=== PATIENT | female | born 1930 | race Caucasian/White ===

== ENCOUNTER 2017-02-15 12:21 | Emergency (ER) | payer MEDICARE, BC ==
[2017-02-15 13:31] LABS: APPEARANCE CLEAR (CLEAR); BILIRUBIN NEGATIVE (NEGATIVE); COLOR YELLOW (YELLOW); GLUCOSE NEGATIVE (NEGATIVE); KETONE NEGATIVE (NEGATIVE); NITRITE NEGATIVE (NEGATIVE); PROTEIN NEGATIVE (NEGATIVE); SPECIFIC GRAVITY 1.005 (1.005-1.020); UROBILINOGEN NORMAL (NORMAL)
== END 2017-02-15 17:00 | disposition home or self-care (01) ==
LOC: D.ER 12:21
PROVIDERS: Family Medicine
DX: R33.9 Retention of urine, unspecified (principal); I10 Essential (primary) hypertension; E03.9 Hypothyroidism, unspecified

== ENCOUNTER 2017-04-11 00:06 | Emergency (ER) | payer MEDICARE, BC ==
[2017-04-11 00:44] LABS: APPEARANCE CLEAR (CLEAR); COLOR YELLOW (YELLOW); NITRITE NEGATIVE (NEGATIVE); PROTEIN NEGATIVE (NEGATIVE); SPECIFIC GRAVITY 1.015 (1.005-1.020)
[2017-04-11 00:45] LABS: BILIRUBIN NEGATIVE (NEGATIVE); GLUCOSE NEGATIVE (NEGATIVE); KETONE NEGATIVE (NEGATIVE); UROBILINOGEN NORMAL (NORMAL)
== END 2017-04-11 01:40 | disposition home or self-care (01) ==
LOC: D.ER 00:06
PROVIDERS: Nurse Practitioner Family
DX: K59.00 Constipation, unspecified (principal); M54.5 Low back pain; I10 Essential (primary) hypertension; E03.9 Hypothyroidism, unspecified

== ENCOUNTER → 2017-05-08 18:50 | Outpatient (CLI) | payer MEDICARE, BC ==
[~2017-05-08 18:50] MED LIST: ACCUPRIL20 MG PO; ALPHAGAN P15 ML EACH EYE; BUMETANIDE0.5 MG PO; COREG12.5 MG PO; COSOPT EYE DROPS5 ML LEFT EYE; HYDRALAZINE HCL25 MG PO; ISOSORBIDE DINI30 MG PO; JANTOVEN6 MG PO; LIMBREL 500 MG500 MG PO; NORVASC5 MG PO; NUCYNTA100 MG PO; SYNTHROID75 MCG PO; VITAMIN D3400 UNI1 PO; XALATAN 0.0052.5 ML EACH EYE
[2017-05-08 19:12] LABS: APPEARANCE CLEAR (CLEAR); BILIRUBIN NEGATIVE (NEGATIVE); COLOR GREEN (YELLOW); GLUCOSE NEGATIVE (NEGATIVE); KETONE NEGATIVE (NEGATIVE); NITRITE NEGATIVE (NEGATIVE); PROTEIN NEGATIVE (NEGATIVE); UROBILINOGEN NORMAL (NORMAL)
[2017-05-08 19:13] LABS: BACTERIA FEW /hpf (NONE SEEN)
[2017-05-08 19:14] LABS: YEAST >1+ WITH HYPHAE /hpf (NONE SEEN)
[2017-08-05 09:39] VITALS: BMI 32.5
== END | disposition home or self-care (01) ==
LOC: D.LABREF 18:50
PROVIDERS: Family Medicine
DX: R33.9 Retention of urine, unspecified (principal)

== ENCOUNTER → 2017-05-09 12:45 | Outpatient (CLI) | payer MEDICARE, BC ==
--- NOTE | ~2017-05-09 | EC ---
PATIENT:FEDE HANCOCK DATE OF SERVICE: 05/09/17 SEX: F MEDICAL RECORD: [id number] DATE OF : 34 LOCATION:D.[facility] AGE OF PATIENT: 86 ADMISSION DATE: 05/09/17 REFERRING PHYSICIAN: INTERPRETING PHYSICIAN: OMAR BECKMAN MD ECHOCARDIOGRAM REPORT ECHO CHARGES 4 ECHO COMPLETE CLINICAL DIAGNOSIS: AFIB/HTN/ANGINA/CAD ECHOCARDIOGRAPHIC MEASUREMENTS (adult normal given) AC root (d.<3.7cm) 2.7 cm LV Septum d (<1.2 cm> 1.7 cm Valve Excursion 1.7 cm LV Septum (systole) 1.8 cm Left Atria (s.<4.0cm> 3.7 cm LVPW d(<1.2cm) 1.9 cm RV (d.<2.3cm) 3.6 cm LVPW (sytole) 2.0 cm LV diastole(<5.6CM) 4.6 cm MV E-F(>70mm/sec) cm LV systole 3.6 cm LVOT Diameter 1.7 cm MV exc.(>10mm) 1.7 cm Est.ejection fraction (50-75%) % Pericardial Effusion N DOPPLER: LVIT cm/sec A 75.0 cm/sec E 88.0 cm/sec LA cm/sec RVSP 27 mmHg LVOT 122 cm/sec AOP1/2T 457 m/s Asc. Ao 173 cm/sec RVOT 96 cm/sec RA cm/sec PA 117 cm/sec AV Gradient Peak 12.01mmHg AV Mean 5.52 mmHg AV Area 1.8 cm MV Gradient Peak 4.82 mmHg MV Mean 1.81 mmHg MV Area cm COMMENTS: Professional Athletes Coach: Thien KIS[employer] Job Titles: 4 Dr. Beckman TAPE# PACS DATE OF SERVICE: 05/09/2017 PROCEDURE: Transthoracic echocardiogram. FINDINGS: 1. The patient's left ventricular function is normal. Ejection fraction 55%. The patient has mild left ventricular hypertrophy. 2. The aortic valve is normal size, normal function with mild aortic insufficiency. 3. The mitral valve has trace to mild mitral regurgitation, otherwise ECHOCARDIOGRAM REPORT [id number] FEDE HANCOCK structurally normal. 4. The tricuspid valve has mild tricuspid regurgitation and normal right ventricular systolic pressures. 5. The right ventricle and the right atrium are mildly dilated with normal function. CONCLUSIONS: The patient has evidence of mild left ventricular hypertrophy, otherwise normal echocardiogram for age. TRANSINT:[id number] Voice Confirmation ID: [id number] DOCUMENT ID: [id number] OMAR BECKMAN MD at 1214 CC: [id number] DICTATION DATE: 05/09/172111 PRENATAL GENETIC COUNSELOR: 05/10/17 0103 DEP CLI 05/09/17 [place] [place] [address]
[2017-08-05 09:39] VITALS: BMI 32.5
== END | disposition home or self-care (01) ==
LOC: D.ECHO 04-16 13:00
DX: I48.91 Unspecified atrial fibrillation (principal); I10 Essential (primary) hypertension; I25.10 Atherosclerotic heart disease of native coronary artery without angina pectoris; I20.9 Angina pectoris, unspecified

== ENCOUNTER → 2017-05-14 16:38 | Outpatient (CLI) | payer MEDICARE, BC ==
[2017-05-14 19:06] LABS: CHOL - HDL RATIO 1.7 ratio (2.3-4.1); LDL-HDL RATIO 0.6 ratio (1.5-3.5)
[2017-08-05 09:39] VITALS: BMI 32.5
== END | disposition home or self-care (01) ==
LOC: D.LABREF 16:38
PROVIDERS: Internal Medicine Cardiovascular Disease
DX: E78.5 Hyperlipidemia, unspecified (principal)

== ENCOUNTER 2017-05-17 17:24 | Emergency (ER) | payer MEDICARE, BC ==
[2017-08-05 09:39] VITALS: BMI 32.5
== END 2017-05-17 20:21 | disposition home or self-care (01) ==
LOC: D.ER 17:24
DX: Z76.0 Encounter for issue of repeat prescription (principal); G89.29 Other chronic pain; I10 Essential (primary) hypertension

== ENCOUNTER 2017-05-26 15:40 | Emergency (ER) | payer MEDICARE, BC ==
[2017-05-26 17:24] LABS: BASOPHILS 0.4 % (0-2); EOSINOPHILS 1.3 % (0-7); HEMATOCRIT 38.8 % (36.0-48.0); HEMOGLOBIN 12.7 g/dL (12-16); IMMATURE GRANULOCYTES 0.1 % (0-5); LYMPHOCYTES 47.5 % (15-50); MCH 29.7 pg (26.0-34.0); MCHC 32.7 g/dL (31.0-37.0); MCV 90.7 fL (80.0-100.0); MEAN PLATELET VOLUME 8.8 fL (7.4-10.4); MONOCYTES 10.6 % (2-11); NEUTROPHILS 40.1 % (40-80); PLATELET COUNT 188 10x3/uL (130-400); RBC 4.28 10x6/uL (4.00-5.40); RDW 14.2 % (11.5-14.5); WBC 6.9 10x3/uL (4.8-10.8)
[2017-05-26 17:45] LABS: APTT 31.6 SECONDS (22.8-39.4); INR 1.69 (0.85-1.17); PROTIME 19.3 SECONDS (11.6-15.0)
[2017-05-26 17:46] LABS: D-DIMER-QUANTITATIVE < 0.27 ug/mLFEU (0.20-0.54)
[2017-05-26 17:49] LABS: MAGNESIUM - SERUM 1.9 mg/dL (1.8-2.4)
[2017-05-26 17:52] LABS: ALBUMIN 3.5 g/dL (3.4-5.0); ALKALINE PHOSPHATASE 55 U/L (46-116); ALT (SGPT) 22 U/L (10-68); BILIRUBIN - TOTAL 0.61 mg/dL (0.2-1.3); CALC OSMOLALITY 273 mosm/kg (275-300); CARBON DIOXIDE 29.3 mmol/L (21.0-32.0); CHLORIDE - SERUM 101 mmol/L (98-107); CREATININE - SERUM 0.8 mg/dL (0.6-1.3); GLUCOSE 99 mg/dL (74-106); POTASSIUM - SERUM 3.9 mmol/L (3.5-5.1); PROTEIN - SERUM 7.2 g/dL (6.4-8.2); SODIUM 136 mmol/L (136-145); UREA NITROGEN 17 mg/dL (7-18); eGFR NON AFRICAN AMERICAN 72 mL/min (90-120)
[2017-05-26 17:58] LABS: APPEARANCE CLEAR (CLEAR); BILIRUBIN NEGATIVE (NEGATIVE); COLOR YELLOW (YELLOW); GLUCOSE NEGATIVE (NEGATIVE); KETONE NEGATIVE (NEGATIVE); NITRITE NEGATIVE (NEGATIVE); PROTEIN NEGATIVE (NEGATIVE); UROBILINOGEN NORMAL (NORMAL)
[2017-05-26 18:00] LABS: BACTERIA FEW /hpf (NONE SEEN); RED CELLS - URINE RARE /hpf (0-5); WHITE CELLS - URINE 0-5 /hpf (0-5)
[2017-05-26 18:07] LABS: CREATINE KINASE 51 UL (21-215); PRO BNP 793 pg/mL (0-450); TROPONIN-I < 0.017 ng/mL (0.000-0.060)
[2017-05-26 21:56] LABS: CREATINE KINASE 51 UL (21-215)
[2017-05-26 22:00] LABS: TROPONIN-I < 0.017 ng/mL (0.000-0.060)
[2017-08-05 09:39] VITALS: BMI 32.5
== END 2017-05-26 22:31 | disposition home or self-care (01) ==
LOC: D.ER 15:40
PROVIDERS: Family Medicine; Nurse Practitioner Family
DX: R07.9 Chest pain, unspecified (principal); M79.605 Pain in left leg; M79.604 Pain in right leg; I10 Essential (primary) hypertension; E03.9 Hypothyroidism, unspecified

== ENCOUNTER 2017-05-28 07:10 | Outpatient (CLI) | payer MEDICARE, BC ==
[~2017-05-28] VITALS: Ht 154.9 cm; Wt 76.4 kg
--- NOTE | ~2017-05-28 | HEMODYNAMI ---
PATIENT:FEDE HANCOCK MEDICAL RECORD: [id number] : 34 LOCATION:[facility] ADMISSION DATE: 05/28/17 Generatedon:05/28/20179:55 Patient name: FEDE HANCOCK Patient #: [id number] SSN: : 1930 Date of study: 05/28/2017 Page: Of Hemodynamic Procedure Report Patient Data Patient Demographics Procedure consent was obtained First Name: FEDE Gender: Female Last Name: KARISSA : 1930 Patient #: [id number] Age: 86 year(s) Race: Unknown Additional ID: [id number] Contact details Address: [address] [place] [address] State: [place] City: [place] Zip code: [address] Past Medical History Allergies Allergen Reaction Date Comments Reported Other allergy 05/28/2017 AMIODARONE, BIOLONEX, CYMBALTA, GABAPENTIN, IODINATED CONTRAST, LEVAQUIN, LEVOTHYROXINE, MIRALAX, MOVANTIK, NIFEDIPINE, PHENAZOPYRIDINE, ZOCOR, BIOFLEX FOR ARTHRITIS Admission Admission Data Admission Date: 05/28/2017 Admission Time: 7:10 Height (in.): 5.1 BSA: 0.29 (m2) Height (cm.): 12.95 BMI: 4514.13 (kg/m2) Weight (lbs.): 167 Weight (kg.): 75.75 Lab Results Lab Result Date: 05/28/2017 Lab Result Time: 1:00 Coagulation Name Units Result Min Max INR units 1.12 --(---*)-- 0.85 1.17 Procedure Procedure Types Cath Procedure Diagnostic Procedure [facility] w/Coronaries Procedure Description Procedure Date Procedure Date: 05/28/2017 Procedure Start Time: 9:41 Procedure End Time: 9:53 Procedure Staff Name Function Dustin Webster MD Performing Physician Evie Fournier RN Nurse Jessica Contreras RT Monitor Sary Hein RT Scrub Procedure Data Cath Procedure Fluoroscopy Diagnostic fluoroscopy Total fluoroscopy Time: 1.5 time: 1.5 min min Diagnostic fluoroscopy Total fluoroscopy dose: 243 dose: 243 mGy mGy Contrast Material Contrast Material Type Amount (ml) Isovue 300 40 Entry Location Entry Primary Successful Side Size Upsize Upsize Entry Closure Sherwood ccessful Closure Location (Fr) 1 (Fr) 2 (Fr) Remarks Device Remarks Radial Right 6 Fr Mechanical artery Short Compression Estimated blood loss: 5 ml Diagnostic catheters Device Type Used For End Catheter Placement DIAGNOSTIC Slim 110cm Procedure 5Fr catheter ([id number]) Procedure Complications No complications Procedure Medications Medication Administration Route Dosage Oxygen NC 2 l/min Lidocaine 2% added to field 20 Heparin Flush Bag added to field 2 bags (1000units/500ml NS) 0.9% NaCl I.V. 100 ml/hr Versed I.V. 1 mg Radial Cocktail I.A. 1 syringe (Verapomil 2mg/Nitro 400mcg/Heparin 1500units) Fentanyl I.V. 25 mcg Hemodynamics Rest BSA: 0.29 (m2) HGB: 11.7 (g/dl) O2 Consumption: Estimated: 26.07 (ml/min) O2 Con sumption indexed: Estimated:89.9 (ml/min/m) Heart Rate: 72 (bpm) Pressure Samples Time Site Value (mmHg) Purpose Heart Use Rate(bpm) 9:47 LV 141/-4,17 EDP 59 Gradients Valve Time Site Site Mean SEP/DFP Peak To Heart Use 1 2 (mmHg) (sec/min) Peak Rate (mmHg) (bpm) Aortic 9:48 LV AO 66 Snapshots Pre Cath Intra NCS Post Cath Vital Signs Time Heart Resp SPO2 etCO2 NIBP (mmHg) Rhythm Pain Sedation Rate (ipm) (%) (mmHg) Status Level (bpm) 9:24:00 67 18 96 33 188/73(129) NSR 0 (11) 10(A) , No pain 9:28:41 61 26 98 37.5 183/75(144) NSR 0 (11) 10(A) , No pain 9:33:21 64 23 98 26.2 201/83(140) NSR 0 (11) 10(A) , No pain 9:37:56 70 18 98 0 181/73(125) NSR 0 (11) 10(A) , No pain 9:42:26 66 13 97 4.5 154/75(119) NSR 0 (11) 10(A) , No pain 9:46:54 68 14 95 32.3 146/62(98) NSR 0 (11) 10(A) , No pain 9:51:21 66 18 95 35.2 136/64(115) NSR 0 (11) 10(A) , No pain Medications Time Medication Route Dose Verified Delivered Reason Notes E ffectiveness by by 9:22:08 Oxygen NC 2 l/min Dustin Buffie used for Eleanor Fournier RN procedure 9:22:15 Lidocaine 2% added 20ml Dustin Dustin for local to vial Eleanor Webster MD anesthetic field HERNANDEZ 9:22:20 Heparin Flush added 2 bags Dustin Dustin used for Bag to Eleanor Webster MD procedure (1000units/500ml field HERNANDEZ NS) 9:22:29 0.9% NaCl I.V. 100 Dustin Buffie Per ml/hr Eleanor Fournier RN physician 9:36:10 Versed I.V. 1 mg Dustin Buffie for sedation Eleanor Fournier RN, MD 9:46:33 Radial Cocktail I.A. 1 Dustin Dustin for (Verapomil syringe Eleanor Webster MD vasodilation 2mg/Nitro MD 400mcg/Heparin 1500units) 9:47:05 Fentanyl I.V. 25 mcg Dustin Buffie for back Eleanor Fournier RN pain MD Procedure Log Time Note 8:27:44 H&P Date Dictated: 05/21/2017 Within 30 days and on chart., H&P Addendum completed by physician on day of procedure. (MUST COMPLETE FOR ALL OUTPATIENTS). 8:29:41 Patient allergic to Other allergyAMIODARONE, BIOLONEX, CYMBALTA, GABAPENTIN, IODINATED CONTRAST, LEVAQUIN, LEVOTHYROXINE, MIRALAX, MOVANTIK, NIFEDIPINE, PHENAZOPYRIDINE, ZOCOR, BIOFLEX FOR ARTHRITIS 8:30:13 Lab Result : BUN 23 mg/dl 8:30:13 Lab Result : Hemoglobin 11.7 g/dl 8:30:13 Lab Result : Creatinine 1 mg/dl 8:30:58 Patient Height : 5.1 inches 8:31:11 Patient Weight : 167 lbs 8:35:03 Lab Result : INR 1.12 units 8:58:10 Evie Fournier RN sent for patient. Start room use. 8:59:51 Time tracking: Regular hours 8:59:56 Plan of Care:Hemodynamics will remain stable., Cardiac rhythm will remain stable., Comfort level will be maintained., Respiratory function will remain adequate., Patient/ family verbilizes understanding of procedure., Procedure tolerated without complication., Recovers from procedure without complications.. 8:59:57 Signed procedure consent form obtained from patient. 9:16:37 Patient received from Pre/Post Procedure Room to CCL 2 Alert and oriented. Tansferred to table in Supine position. 9:16:38 Warm blankets applied, and art hugger turned on for patient comfort. 9:16:39 Correct patient and procedure confirmed by team. 9:16:41 ECG and BP/O2 sat monitors applied to patient. 9:22:08 Oxygen 2 l/min NC was administered by Evie Fournier RN; used for procedure; 9:22:15 Lidocaine 2% 20ml vial added to field was administered by Dustin Webster MD; for local anesthetic; 9:22:20 Heparin Flush Bag (1000units/500ml NS) 2 bags added to field was administered by Dustin Webster MD; used for procedure; 9:22:29 0.9% NaCl 100 ml/hr I.V. was administered by Evie Fournier RN; Per physician; 9:22:31 Vital chart was started 9:32:41 Baseline sample Acquired. 9:32:44 Rhythm: sinus rhythm 9:32:45 Full Disclosure recording started 9:32:46 Pre-procedure instructions explained to patient. 9:32:46 Pre-op teaching completed and patient verbalized understanding. 9:32:48 Family in patients room. 9:32:49 Patient NPO since Midnight. 9:32:51 Is the patient allergic to Iodine/contrast media? Yes. 9:32:52 Was the patient premedicated? Yes 9:33:05 Is patient on blood thinner?Yes 9:33:08 ACC The patient was administered the following blood thiners within the last 24 hours: ACCPlavix 9:33:10 Patient diabetic? No. 9:33:20 Previous problem with sedation/anesthesia? Yes light sedation 9:33:21 Snore? No 9:33:23 Deviated septum? No 9:33:25 Sleep apnea? No 9:33:26 Opens mouth fully? Yes 9:33:27 Sticks out tongue? Yes 9:33:29 Airway obstruction? No ? 9:33:32 Dentures? Yes IN TIGHT 9:33:36 Modified Radames's test Ulnar < 7 seconds 9:33:38 Patient pain scale 0/10 ?. 9:33:44 IV patent on arrival in right antecubital with 0.9% NaCl at [facility]. 9:33:47 Lab results completed and on chart. 9:33:49 Right Radial & Right Groin area was prepped with chlora-prep and draped in sterile fashion 9:33:51 Alarms reviewed by R. N. 9:33:51 Sharps counted by scrub and verified by R.N. 9:33:54 Use device set Radial Dx or PCI 9:33:55 ACIST Syringe (32870) opened to sterile field. 9:33:56 Tegaderm 4 x 4 (1626W) opened to sterile field. 9:33:57 Bag Decanter (2002S) opened to sterile field. 9:33:59 ACIST Hand Control (52449) opened to sterile field. 9:34:00 ACIST Manifold (36699) opened to sterile field. 9:34:00 Medline Cath Pack ([id number]) opened to sterile field. 9:34:01 SHEATH 6FR Slender ([id number]) opened to sterile field. 9:34:02 DIAGNOSTIC WIRE .035 260cm J wire (773968) opened to sterile field. 9:34:03 MBrace Wrist Support ([id number]) opened to sterile field. 9:34:23 --------ALL STOP TIME OUT------ 9:34:24 Final Timeout: patient, procedure, and site verified with staff and physician. All members of the team are in agreement. 9:34:25 Right Radial & Right Groin site verified by team. 9:34:29 Physical assessment completed. ASA score P 2 - A patient with mild systemic disease as per Dustin Webster MD. 9:34:32 Sedation plan: IV Moderate Sedation Medication:Versed, Fentanyl 9:36:10 Versed 1 mg I.V. was administered by Evie Fournier RN; for sedation; 9:40:58 Procedure started. 9:41:17 Local anesthetic to right radial artery with Lidocaine 2% by Dustin Webster MD.INITIAL ACCESS ONLY 9:41:40 Zero performed for pressure channel P1 9:41:54 Zero performed for pressure channel P1 9:44:02 A 6 Fr Short sheath was inserted into the Right Radial artery 9:45:43 A DIAGNOSTIC Slim 110cm 5Fr catheter ([id number]) was advanced over the wire and used for Procedure. 9:46:33 Radial Cocktail (Verapomil 2mg/Nitro 400mcg/Heparin 1500units) 1 syringe I.A. was administered by Dustin Webster MD; for vasodilation; 9:47:00 LV gram done using BROUSSARD 9:47:05 Fentanyl 25 mcg I.V. was administered by Evie Fournier RN; for back pain; 9:47:36 Injector settings: Ml/sec: 12, Volume: 8, 9:47:40 LV hemodynamics recorded. 9:48:10 EF : 55 % 9:48:57 LCA angiography performed. 9:49:38 RCA angiography performed. 9:49:45 Catheter removed. 9:49:47 TR BAND Standard ([id number]) opened to sterile field. 9:49:52 Procedure ended.(Physican Out) 9:50:20 Sheath removed intact; hemostasis achieved with Mechanical Compression to the Right Radial artery. 9:50:29 Fluoroscopy time 01.50 minutes. 9:50:34 Fluoroscopy dose: 243 mGy 9:50:34 Flurop Dose total: 243 9:50:36 Contrast amount:Isovue 300 40ml. 9:50:38 Sharps counted by scrub and verified by R.N. 9:50:40 TR band inflated with 10cc of air. 9:52:30 Post-procedure physical assessment completed. ASA score P 2 - A patient with mild systemic disease as per Dustin Webster MD. 9:52:32 Post procedure rhythm: unchanged. 9:52:34 Estimated blood loss: 5 ml 9:52:35 Post procedure instruction explained to patient.Patient verbalizes understanding. 9:52:35 Patient needs reinforcement of post procedure teaching. 9:53:29 Procedure and supply charges have been captured, reviewed, submitted and are correct. 9:53:31 Procedure Complication : No complications 9:53:33 Vital chart was stopped 9:53:33 See physician's report for complete and final results. 9:53:35 Report given to Pre/Post Procedure Room. 9:53:37 Patient transfered to Pre/Post Procedure Room with Bed. 9:53:38 Procedure ended. 9:53:38 Full Disclosure recording stopped 9:53:42 End room use (Document Last) Device Usage Item Name Manufacture Quantity Catalog Hospital Part Current Minima l Lot# / Number Charge Number Stock Stock Serial# Code ACIST Acist 1 [id number] 294825 191630 035716 20 Syringe Medical (23533) Systems Inc Tegaderm 4 x 3M 1 1626W [id number] 129478 823676 5 4 (1626W) Bag Decanter Microtek 1 2002S 890062 86888 258921 5 (2002S) Medical Inc. ACIST Hand Acist 1 15150 390286 650265 755469 5 Control Medical (89378) Systems Inc ACIST Acist 1 51083 465146 399888 213149 5 Manifold Medical (53133) Systems Inc Medline Cath Cardinal 1 [id number] 004102 379266 5 Pack Health ([id number]) SHEATH 6FR Terumo 1 [id number] 473145 378550 883087 40 Slender ([id number]) DIAGNOSTIC St Pablo 1 997381 576988 596163 652318 30 WIRE .035 260cm J wire (324124) MBrace Wrist Advanced 1 140-0250-00 586119 70560 135501 5 Support Vascular ([id number]) Dynamics DIAGNOSTIC Terumo 1 40-5023 697803 862989 133360 5 Slim 110cm 5Fr catheter (174490) TR BAND Terumo 1 QCG90-PRB 929459 119612 517441 40 Standard ([id number]) Signature Audit [place]inda Stage Time Signature Unsigned Intra-Procedure 05/28/2017 Jessica Conrteras 9:54:58 AM RT(R) Signatures Monitor : Jessica Contreras Signature : RT Date : Time : [address] [address]
[2017-05-28 07:47] LABS: BASOPHILS 0.5 % (0-2); EOSINOPHILS 1.1 % (0-7); HEMATOCRIT 35.8 % (36.0-48.0); HEMOGLOBIN 11.7 g/dL (12-16); IMMATURE GRANULOCYTES 0.2 % (0-5); LYMPHOCYTES 44.4 % (15-50); MCH 29.5 pg (26.0-34.0); MCHC 32.7 g/dL (31.0-37.0); MCV 90.4 fL (80.0-100.0); MEAN PLATELET VOLUME 8.8 fL (7.4-10.4); MONOCYTES 15.4 % (2-11); NEUTROPHILS 38.4 % (40-80); PLATELET COUNT 190 10x3/uL (130-400); RBC 3.96 10x6/uL (4.00-5.40); RDW 14.1 % (11.5-14.5); WBC 5.5 10x3/uL (4.8-10.8)
[2017-05-28 07:56] VITALS: BP 138/56; Ht 154.9 cm; Wt 76.4 kg
[2017-05-28 08:09] LABS: ANION GAP 12.4 mmol/L (8-16); CALCIUM 8.8 mg/dL (8.5-10.1); CARBON DIOXIDE 28.6 mmol/L (21.0-32.0)
[2017-05-28] MEDS ORDERED: NORVASC5 MG PO (08:15)
[2017-05-28] MEDS ORDERED: JANTOVEN6 MG PO (08:15)
[2017-05-28] MEDS ORDERED: HYDRALAZINE HCL25 MG PO (08:15)
[2017-05-28] MEDS ORDERED: NUCYNTA100 MG PO (08:16)
[2017-05-28] MEDS ORDERED: SYNTHROID75 MCG PO (08:16)
[2017-05-28] MEDS ORDERED: LIMBREL 500 MG500 MG PO (08:17)
[2017-05-28] MEDS ORDERED: BUMETANIDE0.5 MG PO (08:17)
[2017-05-28] MEDS ORDERED: ACCUPRIL20 MG PO (08:17)
[2017-05-28] MEDS ORDERED: VITAMIN D3400 UNI1 PO (08:18)
[2017-05-28] MEDS ORDERED: ISOSORBIDE DINI30 MG PO (08:18)
[2017-05-28] MEDS ORDERED: COREG12.5 MG PO (08:18)
[2017-05-28] MEDS ORDERED: ALPHAGAN P15 ML EACH EYE (08:19)
[2017-05-28] MEDS ORDERED: XALATAN 0.0052.5 ML EACH EYE (08:19)
[2017-05-28] MEDS ORDERED: COSOPT EYE DROPS5 ML LEFT EYE (08:20)
[2017-05-28 08:32] LABS: APTT 28.4 SECONDS (22.8-39.4); INR 1.12 (0.85-1.17)
== END 2017-05-28 12:30 | disposition home or self-care (01) ==
LOC: D.CATH 07:10
PROVIDERS: Internal Medicine Cardiovascular Disease
DX: I25.119 Atherosclerotic heart disease of native coronary artery with unspecified angina pectoris (principal); E78.5 Hyperlipidemia, unspecified; R94.30 Abnormal result of cardiovascular function study, unspecified; I48.91 Unspecified atrial fibrillation; Z01.812 Encounter for preprocedural laboratory examination

== ENCOUNTER 2017-08-05 09:00 | Outpatient (CLI) | payer MEDICARE, BC ==
[~2017-08-05] VITALS: Ht 154.9 cm; Wt 78.2 kg
--- NOTE | ~2017-08-05 | HEMODYNAMI ---
PATIENT:FEDE HANCOCK MEDICAL RECORD: [id number] : 34 LOCATION:[facility] ADMISSION DATE: 08/05/17 Generatedon:08/05/201712:27 Patient name: FEDE HANCOCK Patient #: [id number] SSN: : 1930 Date of study: 08/05/2017 Page: Of Hemodynamic Procedure Report Patient Data Patient Demographics Procedure consent was obtained First Name: FEDE Gender: Female Last Name: KARISSA : 1930 [facility] Initial: FARRUKH Age: 86 year(s) Patient #: [id number] Race: Unknown Additional ID: [id number] Contact details Address: [address] [place] [address] State: [place] City: [place] Zip code: [address] Past Medical History Allergies Allergen Reaction Date Comments Reported Other allergy 05/28/2017 AMIODARONE, BIOLONEX, CYMBALTA, GABAPENTIN, IODINATED CONTRAST, LEVAQUIN, LEVOTHYROXINE, MIRALAX, MOVANTIK, NIFEDIPINE, PHENAZOPYRIDINE, ZOCOR, BIOFLEX FOR ARTHRITIS Other allergy 08/05/2017 AMIODARONE, BIOFLONEX, CYMBALTA, BABAPENTIN, ORAL AND IV DYE, LEVAQUIN, LEVOTHYROXINE, MIRALAX, MOVANTIX, NIFEDIPINE, PPHENAZOPYRIDINE, ZOCOR Admission Admission Data Admission Date: 08/05/2017 Admission Time: 9:00 Lab Results Lab Result Date: 08/05/2017 Lab Result Time: 1:00 Biochemistry Name Units Result Min Max BUN mg/dl 23 --(----)-* 7 18 Creatinine mg/dl 1 --(--*-)-- 0.6 1.3 Procedure Procedure Types Cath Procedure Diagnostic Procedure PPM/ICD Loop Recorder Implant Procedure Description Procedure Date Procedure Date: 08/05/2017 Procedure Start Time: 12:22 Procedure End Time: 12:27 Procedure Staff Name Function Dustin Webster MD Performing Physician Jessica Contreras RT Monitor Jazmine Ernandez RT Scrub Cesar Bolaños RN Nurse Procedure Data Cath Procedure Estimated blood loss: 0 ml Procedure Medications Medication Administration Route Dosage 0.9% NaCl I.V. 100 ml/hr Oxygen etCO2 Nasal cannula 2 l/min Lidocaine 2% added to field 20 Ancef (1Gm/50ml NS) I.V.P.B 1 g Versed I.V. 1 mg Fentanyl I.V. 25 mcg Hemodynamics Rest Pre Cath Intra NCS Post Cath Vital Signs Time Heart Resp SPO2 etCO2 NIBP (mmHg) Rhythm Pain Sedation Rate (ipm) (%) (mmHg) Status Level (bpm) 12:20:03 58 13 95 0 153/62(113) NSR 0 (11) 10(A) , No pain 12:24:54 56 10 92 0 130/54(104) NSR 0 (11) 10(A) , No pain Medications Time Medication Route Dose Verified Delivered Reason Notes Effectiv eness by by 12:18:58 0.9% NaCl I.V. 100 Cesar Cesar Per ml/hr Miky Bolaños physician RN RN 12:19:06 Oxygen etCO2 2 Cesar Cesar Per Nasal l/min Lorroberto Priceigan physician cannula RN RN 12:19:21 Lidocaine added 20ml Cesar Cesar for local 2% to vial Lorigan Lorigan anesthetic field RN RN 12:19:33 Ancef I.V.P.B 1 g Cesar Cesar Per (1Gm/50ml Lorigan Lorigan physician NS) RN RN 12:22:31 Versed I.V. 1 mg Cesar Cesar for Lorigan Lorigan sedation RN RN 12:22:39 Fentanyl I.V. 25 Cesar Cesar for mcg Lorigan Lorigan sedation RN cancer program coordinator Log Time Note 11:49:41 Signed procedure consent form obtained from patient. 11:49:42 Time tracking: Regular hours (M-F 7:00 - 5:00) 11:49:46 Plan of Care:Hemodynamics will remain stable., Cardiac rhythm will remain stable., Comfort level will be maintained., Respiratory function will remain adequate., Patient/ family verbilizes understanding of procedure., Procedure tolerated without complication., Recovers from procedure without complications.. 11:55:07 H&P Date Dictated: 07/30/2017 Within 30 days and on chart., H&P Addendum completed by physician on day of procedure. (MUST COMPLETE FOR ALL OUTPATIENTS). 11:55:59 Cesar Bolaños RN sent for patient. Start room use. 11:56:42 Patient allergic to Other allergyAMIODARONE, BIOFLONEX, CYMBALTA, BABAPENTIN, ORAL AND IV DYE, LEVAQUIN, LEVOTHYROXINE, MIRALAX, MOVANTIX, NIFEDIPINE, PPHENAZOPYRIDINE, ZOCOR 11:56:56 Lab Result : Hemoglobin 11.7 g/dl 11:57:16 Lab Result : Creatinine 1 mg/dl 11:57:16 Lab Result : BUN 23 mg/dl 12:08:55 Patient received from Pre/Post Procedure Room to CCL 1 Alert and oriented. Tansferred to table in Supine position. 12:08:56 Warm blankets applied, and art hugger turned on for patient comfort. 12:08:57 Correct patient and procedure confirmed by team. 12:08:59 ECG and BP/O2 sat monitors applied to patient. 12:09:00 Full Disclosure recording started 12:14:15 Vital chart was started 12:14:19 Rhythm: sinus rhythm 12:14:24 Pre-procedure instructions explained to patient. 12:14:24 Pre-op teaching completed and patient verbalized understanding. 12:14:28 Family in patients room. 12:14:30 Patient NPO since Midnight. 12:14:32 Is the patient allergic to Iodine/contrast media? No. 12:14:36 Is patient on blood thinner?Yes 12:15:03 COUMADIN LAST DOSE 07/31/17 12:15:05 Patient diabetic? No. 12:15:09 Previous problem with sedation/anesthesia? No ? 12:15:10 Snore? Yes 12:15:11 Sleep apnea? No 12:15:12 Deviated septum? No 12:15:13 Opens mouth fully? Yes 12:15:13 Sticks out tongue? Yes 12:15:15 Airway obstruction? No ? 12:15:17 Dentures? No ? 12:15:21 Patient pain scale 0/10 ?. 12:15:47 Lab results completed and on chart. 12:15:55 Mid Chest area was prepped with chlora-prep and draped in sterile fashion 12:15:55 Alarms reviewed by R. N. 12:15:56 Sharps counted by scrub and verified by R.N. 12:18:58 0.9% NaCl 100 ml/hr I.V. was administered by Cesar Bolaños RN; Per physician; 12:19:06 Oxygen 2 l/min etCO2 Nasal cannula was administered by Cesar Bolaños RN; Per physician; 12:19:21 Lidocaine 2% 20ml vial added to field was administered by Cesar Bolaños RN; for local anesthetic; 12:19:33 Ancef (1Gm/50ml NS) 1 g I.V.P.B was administered by Cesar Bolaños RN; Per physician; 12::39 Final Timeout: patient, procedure, and site verified with staff and physician. All members of the team are in agreement. 12::44 Mid Chest site verified by team. 12::46 Physical assessment completed. ASA score P 2 - A patient with mild systemic disease as per Dustin Webster MD. 12::49 Sedation plan: IV Moderate Sedation Medication:Versed, Fentanyl 12::54 Procedure started. 12:22:07 Lidocaine 2% was administered to mid chest by Dustin Webster MD . 12:22:10 Incision made to mid chest. 12:22:15 Linq was inserted subcutaneously to mid chest. 12:22:31 Versed 1 mg I.V. was administered by Cesar Bolaños RN; for sedation; 12::39 Fentanyl 25 mcg I.V. was administered by Cesar Bolaños RN; for sedation; 12:23:25 Procedure ended.(Physican Out) 12:24:32 Sharps counted by scrub and verified by R.N. 12:24:33 Insertion/operative site no bleeding no hematoma. 12:24:43 Mid Chest incision was dressed with gauze eyepad and tegaderm. 12:24:56 Post procedure rhythm: unchanged. 12:25:04 Estimated blood loss: 0 ml 12:25:05 Post procedure instruction explained to patient.Patient verbalizes understanding. 12:25:06 Patient needs reinforcement of post procedure teaching. 12:25:14 See physician's report for complete and final results. 12:25:21 Stapler Skin 35W Proximate Plus (PMW35) opened to sterile field. 12:25:22 Medtronic Linq Loop Recorder opened to sterile field. 12:25:23 Tegaderm 4 x 4 (1626W) opened to sterile field. 12:25:43 Procedure and supply charges have been captured, reviewed, submitted and are correct. 12:27:16 Vital chart was stopped 12:27:17 Report given to Pre/Post Procedure Room. 12:27:20 Patient transfered to Pre/Post Procedure Room with Stretcher. 12:27:30 Procedure ended. 12:27:30 Full Disclosure recording stopped 12:27:32 End room use (Document Last) Device Usage Item Name Manufacture Quantity Catalog Hospital Part Current Minimal Lot# / Number Charge Number Stock Stock Serial# Code Stapler Unknown 1 [id number] [id number] 163060 150687 5 Skin 35W Proximate Plus (PMW35) Medtronic Medtronic 1 LNQSYS [id number] 148769 203521 5 SN Linq Loop [id number] Recorder EXP 2018-06-04 Tegaderm 3M 1 1626W 971947 413500 217123 5 4 x 4 (1626W) Signature Audit [place] Stage Time Signature Unsigned Intra-Procedure 08/05/2017 Jazmine 12:27:43 PM Counts RT(R) Signatures Monitor : Jessica Contreras Signature : RT Date : Time : [address] [address]
[2017-08-05 09:39] VITALS: BP 116/51; Ht 154.9 cm; Wt 78.2 kg
== END 2017-08-05 14:00 | disposition home or self-care (01) ==
LOC: D.CATH 09:00
DX: R55 Syncope and collapse (principal); Z01.812 Encounter for preprocedural laboratory examination

== ENCOUNTER → 2017-12-26 13:14 | Outpatient (CLI) | payer MEDICARE, BC ==
[2017-08-05 09:39] VITALS: BMI 32.5
--- NOTE | ~2017-12-26 | EC ---
PATIENT:FEDE HANCOCK DATE OF SERVICE: 12/26/17 SEX: F MEDICAL RECORD: [id number] DATE OF : 34 LOCATION:D.[facility] AGE OF PATIENT: 87 ADMISSION DATE: 12/26/17 REFERRING PHYSICIAN: INTERPRETING PHYSICIAN: OMAR BECKMAN MD ECHOCARDIOGRAM REPORT ECHO CHARGES 4 ECHO COMPLETE Date: 12/26/17 CLINICAL DIAGNOSIS: DYSPNEA/TACHYCARDIA ECHOCARDIOGRAPHIC MEASUREMENTS (adult normal given) AC root (d.<3.7cm) 2.6 cm LV Septum d (<1.2 cm> 1.5 cm Valve Excursion 1.8 cm LV Septum (systole) 2.2 cm Left Atria (s.<4.0cm> 4.7 cm LVPW d(<1.2cm) 1.3 cm RV (d.<2.3cm) 2.3 cm LVPW (sytole) 2.1 cm LV diastole(<5.6CM) 5.2 cm MV E-F(>70mm/sec) cm LV systole 2.4 cm LVOT Diameter 1.8 cm MV exc.(>10mm) cm Est.ejection fraction (50-75%) % DOPPLER: LVIT cm/sec A 80.0 cm/sec E 103 cm/sec LA cm/sec RVSP 45.0 mmHg LVOT 144 cm/sec AOP1/2T 692.0m/s Asc. Ao 223 cm/sec RVOT 90.0 cm/sec RA cm/sec PA 109 cm/sec AV Gradient Peak 20.0 mmHg AV Mean 10.1 mmHg AV Area 1.6 cm MV Gradient Peak 7.6 mmHg MV Mean 2.5 mmHg MV Area cm COMMENTS: Kitchen Cleaner: Andie SKINNEROE [facility] Director: 4 Dr. Beckman TAPE# PACS Pericardial Effusion N DATE OF SERVICE: PROCEDURE: Transthoracic echocardiogram. FINDINGS: 1. The left ventricle is hyperdynamic. There is concentric left ventricular hypertrophy. Ejection fraction is 65% to 70%. 2. The left atrium is moderately dilated. 3. The aortic valve is overall normal with trace to mild aortic insufficiency. 4. The mitral valve has mild mitral regurgitation. ECHOCARDIOGRAM REPORT [id number] FEDE HANCOCK 5. There is trace tricuspid regurgitation, RVSP of 45 mmHg. 6. The right ventricle is normal. 7. The right atrium is normal. CONCLUSIONS: This is a normal echocardiogram for the patient's stated age. TRANSINT:[id number] Voice Confirmation ID: [id number] DOCUMENT ID: [id number] OMAR BECKMAN MD CC: [id number] DICTATION DATE: 01/05/18 0550 DONOR RECRUITER: 01/05/18 0745 DEP CLI 12/26/17 [facility] [address] [place] [id number]
== END | disposition home or self-care (01) ==
LOC: D.ECHO 13:00
DX: R06.00 Dyspnea, unspecified (principal); I47.2 Ventricular tachycardia

== ENCOUNTER → 2017-12-29 09:41 | Outpatient (CLI) | payer MEDICARE, BC ==
[2017-08-05 09:39] VITALS: BMI 32.5
== END | disposition home or self-care (01) ==
LOC: D.RAD 09:41
DX: R13.10 Dysphagia, unspecified (principal)

== ENCOUNTER → 2018-02-03 20:45 | Outpatient (CLI) | payer MEDICARE, BC ==
[2017-08-05 09:39] VITALS: BMI 32.5
== END | disposition home or self-care (01) ==
LOC: D.MAMMO 11:00
DX: Z12.31 Encounter for screening mammogram for malignant neoplasm of breast (principal)

== ENCOUNTER 2018-02-04 09:35 | Day surgery (SDC) | payer MEDICARE, BC ==
[~2018-02-04] VITALS: Ht 154.9 cm; Wt 77.3 kg
--- NOTE | ~2018-02-04 | OP ---
PATIENT NAME: FEDE HANCOCK MEDICAL RECORD: [id number] :34 LOCATION:[facility] ADMISSION DATE: SURGEON: ZAK BROWN DO DATE OF OPERATION: 02/04/2018 PROCEDURE: EGD with balloon dilation and biopsies. INDICATIONS FOR PROCEDURE: Dysphagia and esophageal pain. SCOPE: Olympus video gastroscope. MEDICATIONS: Propofol 80 mg IV per anesthesia. ESTIMATED BLOOD LOSS: Minimal. COMPLICATIONS: None. FINDINGS AND DESCRIPTION OF PROCEDURE: Informed consent was given. The patient was made comfortable with the above medication. After reaching an adequate level of sedation by slow IV push, the patient was placed on her left side. The endoscope was advanced under direct visualization through the mouth to the second portion of the duodenum. The upper and middle thirds of the esophagus appeared normal. In the distal third of the esophagus, at the GE junction, there appeared to be some esophageal stenosis. Appearances could be consistent with achalasia. There was some slight resistance to passage of the endoscope, but it did proceed through the GE junction without too much pressure. At the GE junction, there was some mild LA class A reflux-induced esophagitis. Regarding the stenosis, an 18-20 mm CRE dilating balloon was passed through the endoscope and the distal esophagus was dilated to 20 mm successfully. Post-procedural endoscopic appearances were basically unchanged; however. The endoscope was advanced into the stomach and retroflexed to view the cardia, where a very small sliding hiatal hernia was present. The mucosa appeared normal throughout the fundus, body of the stomach, antrum, and prepyloric regions. The endoscope was advanced beyond the pylorus into the duodenum where the entire examined duodenum appeared normal. The endoscope was then brought back into the stomach and random cold forceps biopsies were taken to submit for histopathology and to rule out the presence of H. pylori. The endoscope was then withdrawn from the patient. The patient tolerated the procedure well and there were no complications. IMPRESSION: 1. LA class A reflux-induced esophagitis. 2. 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 3. Small sliding hiatal hernia. PLAN AND RECOMMENDATIONS: 1. Discharge home when recovery parameters are met. 2. Follow up biopsy specimen results. 3. Barium esophagram regarding the dysphagia. 4. Follow up in GI clinic in 2 weeks. If esophagram is consistent with achalasia, we will consider esophageal manometry to confirm the diagnosis. Then, the patient will likely require referral to [facility] for management of achalasia. If findings are not consistent with achalasia, we will work up further. OPERATIVE REPORT [id number] FEDE HANCOCK 5. Trial of omeprazole 40 mg daily times 30 days. If there is no improvement after 2 weeks when she follows up in the GI clinic, this can be discontinued. TRANSINT:[id number] Voice Confirmation ID: [id number] DOCUMENT ID: [id number] ZAK BROWN DO CC: [id number] DICTATION DATE: 02/04/18 1137 SHINGLE CUTTER: 02/04/18 1237 [facility] [address] [id number]
[2018-02-04 10:21] LABS: ANION GAP 7.4 mmol/L (8-16); CALCIUM 8.7 mg/dL (8.5-10.1); CARBON DIOXIDE 33.4 mmol/L (21.0-32.0); CREATININE - SERUM 0.8 mg/dL (0.6-1.3); POTASSIUM - SERUM 3.8 mmol/L (3.5-5.1)
[2018-02-04 10:25] LABS: BASOPHILS 0.4 % (0-2); EOSINOPHILS 2.3 % (0-7); HEMATOCRIT 34.7 % (36.0-48.0); HEMOGLOBIN 11.2 g/dL (12-16); IMMATURE GRANULOCYTES 0.1 % (0-5); LYMPHOCYTES 40.5 % (15-50); MCH 29.5 pg (26.0-34.0); MCHC 32.3 g/dL (31.0-37.0); MCV 91.3 fL (80.0-100.0); MEAN PLATELET VOLUME 9.8 fL (7.4-10.4); MONOCYTES 16.9 % (2-11); NEUTROPHILS 39.8 % (40-80); PLATELET COUNT 219 10x3/uL (130-400); RDW 13.6 % (11.5-14.5); WBC 7.1 10x3/uL (4.8-10.8)
[2018-02-04 10:27] LABS: PROTIME 12.7 SECONDS (11.6-15.0)
[2018-02-04 10:38] VITALS: BP 152/52; Ht 154.9 cm; Wt 77.3 kg
== END 2018-02-04 13:04 | disposition home or self-care (01) ==
LOC: D.OPS 09:35
PROVIDERS: Anesthesiology
DX: K29.50 Unspecified chronic gastritis without bleeding (principal); B96.81 Helicobacter pylori [H. pylori] as the cause of diseases classified elsewhere; K21.0 Gastro-esophageal reflux disease with esophagitis; K44.9 Diaphragmatic hernia without obstruction or gangrene; K22.2 Esophageal obstruction; Z01.812 Encounter for preprocedural laboratory examination

== ENCOUNTER → 2018-02-09 09:27 | Outpatient (CLI) | payer MEDICARE, BC ==
[2018-02-04 10:38] VITALS: BMI 32.2
== END | disposition home or self-care (01) ==
LOC: D.RAD 09:00
DX: R13.10 Dysphagia, unspecified (principal)

== ENCOUNTER 2018-03-05 10:02 | Outpatient (CLI) | payer MEDICARE, BC ==
[2018-02-04 10:38] VITALS: BMI 32.2
== END 2018-03-05 11:20 | disposition home or self-care (01) ==
LOC: D.OPS 10:02
DX: R13.10 Dysphagia, unspecified (principal); Z01.812 Encounter for preprocedural laboratory examination

== ENCOUNTER 2018-04-30 10:55 | Outpatient (CLI) | payer MEDICARE, BC ==
[~2018-04-30] VITALS: Ht 154.9 cm; Wt 78.2 kg
--- NOTE | ~2018-04-30 | HEMODYNAMI ---
PATIENT:FEDE HANCOCK MEDICAL RECORD: [id number] : 34 LOCATION:[facility] ADMISSION DATE: 04/30/18 Generatedon:04/30/201813:58 Patient name: FEDE HANCOCK Patient #: [id number] SSN: : 1930 Date of study: 04/30/2018 Page: Of Hemodynamic Procedure Report Patient Data Patient Demographics Procedure consent was obtained First Name: FEDE Gender: Female Last Name: KARISSA : 1930 [facility] Initial: FARRUKH Age: 87 year(s) Patient #: [id number] Race: Unknown Additional ID: [id number] Contact details [address]: [address] [place] [address] State: [place] City: [place] Zip code: [address] Past Medical History Allergies Allergen Reaction Date Comments Reported Other allergy 05/28/2017 AMIODARONE, BIOLONEX, CYMBALTA, GABAPENTIN, IODINATED CONTRAST, LEVAQUIN, LEVOTHYROXINE, MIRALAX, MOVANTIK, NIFEDIPINE, PHENAZOPYRIDINE, ZOCOR, BIOFLEX FOR ARTHRITIS Other allergy 08/05/2017 AMIODARONE, BIOFLONEX, CYMBALTA, BABAPENTIN, ORAL AND IV DYE, LEVAQUIN, LEVOTHYROXINE, MIRALAX, MOVANTIX, NIFEDIPINE, PPHENAZOPYRIDINE, ZOCOR Other allergy 04/30/2018 AMIODARONE, BIOFLONEX, CYMBALTA, GABAPENTIN, IODINATED CONTRAST, LEVAQUIN, LEVOTHYROXINE, MIRALAX, MOVANTIK, NIFEDIPINE, PHENAZOPRIDINE, ZOCOR Admission Admission Data Admission Date: 04/30/2018 Admission Time: 10:55 Height (in.): 61 BSA: 1.86 (m2) Height (cm.): 154.94 BMI: 36.47 (kg/m2) Weight (lbs.): 193 Weight (kg.): 87.54 Lab Results Lab Result Date: 04/30/2018 Lab Result Time: 0:00 Biochemistry Name Units Result Min Max BUN mg/dl 30 --(----)-* 7 18 Creatinine mg/dl 1 --(--*-)-- 0.6 1.3 CBC Name Units Result Min Max Hemoglobin g/dl 11 *-(----)-- 13.5 17.5 Procedure Procedure Types Cath Procedure Diagnostic Procedure PPM/ICD PPM Dual Implant Sedation Charges Moderate Sedation up to 30 minutes Procedure Description Procedure Date Procedure Date: 04/30/2018 Procedure Start Time: 13:11 Procedure End Time: 13:56 Procedure Staff Name Function Jamil Todd MD Performing Physician Dmitry Cueto MD Assisting physician Jessica Contreras RT Monitor Mayito Garcia RT Scrub Evie Fournier RN Nurse Sary Hein RT Stem Shaper Shayy Robison RN Stem Shaper Procedure Data Cath Procedure Fluoroscopy Diagnostic fluoroscopy Total fluoroscopy Time: 7.7 time: 7.7 min min Diagnostic fluoroscopy Total fluoroscopy dose: dose: 233.2 mGy 233.2 mGy Estimated blood loss: 10 ml Procedure Complications No complications Procedure Medications Medication Administration Route Dosage 0.9% NaCl I.V. 100 ml/hr Oxygen etCO2 Nasal cannula 2 l/min Lidocaine 2% added to field 20 Ancef (1Gm/50ml NS) I.V.P.B 1 g Ancef Irrigation Topical 1 g (1gm/500ml NS) Versed I.V. 2 mg Fentanyl I.V. 50 mcg Versed I.V. 2 mg Fentanyl I.V. 50 mcg Versed I.V. 2 mg Fentanyl I.V. 50 mcg Hemodynamics Rest BSA: 1.86 (m2) HGB: 11 (g/dl) O2 Consumption: Estimated: 162.95 (ml/min) O2 Cons umption indexed: Estimated:87.61 (ml/min/m) Heart Rate: 67 (bpm) Snapshots Pre Cath Intra NCS Post Cath Vital Signs Time Heart Resp SPO2 etCO2 NIBP (mmHg) Rhythm Pain Sedation Rate (ipm) (%) (mmHg) Status Level (bpm) 12:40:36 63 12 97 0 179/75(117) NSR 0 (11) 10(A) , No pain 12:45:35 62 14 99 0 171/66(134) NSR 0 (11) 10(A) , No pain 12:50:09 59 12 98 0.7 116/55(84) SB 0 (11) 10(A) , No pain 12:54:41 58 12 98 0 121/50(94) SB 0 (11) 10(A) , No pain 12:59:18 56 11 98 0 116/45(83) SB 0 (11) 10(A) , No pain 13:03:52 60 11 98 0 115/48(90) NSR 0 (11) 10(A) , No pain 13:08:23 64 12 98 0 121/53(95) NSR 0 (11) 10(A) , No pain 13:12:55 64 14 98 0 127/55(100) NSR 0 (11) 10(A) , No pain 13:17:28 73 11 98 0 121/52(89) NSR 0 (11) 9(A) , No pain 13:22:00 61 16 96 0 133/54(70) NSR 0 (11) 9(A) , No pain 13:26:36 65 12 99 0 129/55(97) NSR 0 (11) 9(A) , No pain 13:31:13 59 12 99 0 131/52(96) SB 0 (11) 9(A) , No pain 13:36:55 60 16 98 0 162/87(121) NSR 6 (11) 10(A) , Intense 13:41:21 90 13 99 0 124/63(95) Paced 0 (11) 9(A) , No pain 13:45:58 63 12 96 0 115/52(91) Paced 0 (11) 9(A) , No pain 13:50:26 66 12 98 0 123/59(88) Paced 0 (11) 9(A) , No pain 13:54:57 58 13 100 0 122/57(94) Paced 0 (11) 10(A) , No pain Medications Time Medication Route Dose Verified Delivered Reason Notes Effecti veness by by 12:40:51 0.9% NaCl I.V. 100 Dmitry Lucas used for ml/hr Jake Robison meter maker 12:40:58 Oxygen etCO2 2 Dmitry Lucas used for Nasal l/min Jake Robison procedure cannula RN 12:41:04 Lidocaine added 20ml Dmitry Andres for local 2% to vial Jake Cueto MD anesthetic field 12:41:21 Ancef I.V.P.B 1 g Quaker Shayy Per (1Gm/50ml Jake Robison physician NS) RN 12:41:31 Ancef Topical 1 g Quaker Shayy Per Irrigation Jake Robison physician (1gm/500ml RN NS) 13:09:10 Versed I.V. 2 mg Quaker Shayy for Jake Robison sedation RN 13:09:16 Fentanyl I.V. 50 Quaker Shayy for mcg Jake Robison sedation RN 13:13:54 Versed I.V. 2 mg Quaker Shayy for Jake Robison sedation RN 13:14:02 Fentanyl I.V. 50 Quaker Shayy for mcg Jake Robison sedation RN 13:37:31 Versed I.V. 2 mg Quaker Shayy for Jake Robison sedation RN 13:37:35 Fentanyl I.V. 50 Quaker Shayy for mcg Jake Robison sedation inspector packer glass container Log Time Note 12:07:46 Patient Height : 61 inches 12:07:49 Patient Weight : 193 lbs 12:08:03 H&P Date Dictated: 04/20/2018 Within 30 days and on chart., H&P Addendum completed by physician on day of procedure. (MUST COMPLETE FOR ALL OUTPATIENTS). 12:10:36 Patient allergic to Other allergyAMIODARONE, BIOFLONEX, CYMBALTA, GABAPENTIN, IODINATED CONTRAST, LEVAQUIN, LEVOTHYROXINE, MIRALAX, MOVANTIK, NIFEDIPINE, PHENAZOPRIDINE, ZOCOR 12:12:49 Lab Result : BUN 30 mg/dl 12:12:49 Lab Result : Creatinine 1 mg/dl 12:12:49 Lab Result : Hemoglobin 11 g/dl 12:24:13 Signed procedure consent form obtained from patient. 12:24:15 Diagnostic Cath status Elective 12:24:17 Time tracking: Regular hours (M-F 7:00 - 5:00) 12:24:21 Plan of Care:Hemodynamics will remain stable., Cardiac rhythm will remain stable., Comfort level will be maintained., Respiratory function will remain adequate., Patient/ family verbilizes understanding of procedure., Procedure tolerated without complication., Recovers from procedure without complications.. 12:24:59 Sary Hein RT(R) sent for patient. Start room use. 12:32:12 Patient received from Pre/Post Procedure Room to CCL 3 Alert and oriented. Tansferred to table in Supine position. 12:38:55 Vital chart was started 12:40:51 0.9% NaCl 100 ml/hr I.V. was administered by Shayy Robison RN; used for procedure; 12:40:58 Oxygen 2 l/min etCO2 Nasal cannula was administered by Shayy Robison RN; used for procedure; 12:41:04 Lidocaine 2% 20ml vial added to field was administered by Dmitry Cueto MD; for local anesthetic; 12:41:21 Ancef (1Gm/50ml NS) 1 g I.V.P.B was administered by Shayy Robison RN; Per physician; 12:41:31 Ancef Irrigation (1gm/500ml NS) 1 g Topical was administered by Shayy Robison RN; Per physician; 12:41:36 Warm blankets applied, and art hugger turned on for patient comfort. 12:41:37 Correct patient and procedure confirmed by team. 12:41:38 ECG and BP/O2 sat monitors applied to patient. 12:41:39 Baseline sample Acquired. 12:42:07 Rhythm: sinus rhythm 12:42:08 Full Disclosure recording started 12:42:09 Pre-procedure instructions explained to patient. 12:42:09 Pre-op teaching completed and patient verbalized understanding. 12:42:11 Family in patients room. 12:42:15 Patient NPO since Midnight. 12:42:16 Is patient on blood thinner?Yes 12:42:27 COUMADIN HELD FOR 6 DAYS 12:42:29 Patient diabetic? No. 12:42:31 Previous problem with sedation/anesthesia? No ? 12:42:33 Snore? No 12:42:34 Sleep apnea? No 12:42:35 Deviated septum? No 12:42:35 Opens mouth fully? Yes 12:42:36 Sticks out tongue? Yes 12:42:39 Airway obstruction? No ? 12:42:42 Dentures? Yes IN TIGHT 12:42:55 IV patent on arrival in left hand with 0.9% NaCl at [facility]. 12:42:56 Lab results completed and on chart. 12:43:01 Left chest area was prepped with chlora-prep and draped in sterile fashion 12:43:01 Alarms reviewed by R. N. 12:43:02 Sharps counted by scrub and verified by R.N. 12:43:08 Use device set JAKE PPM 12:43:28 2-0 Ticron Multipack ([id number]) opened to sterile field. 12:43:29 3-0 Vicryl Single Pack [id number] opened to sterile field. 12:43:30 5-0 Monocryl PS2 [id number] opened to sterile field. 12:43:33 Immobilizer Extra Large opened to sterile field. 12:43:52 Medtronic Advisa MRI PPM Dual Generator [id number] opened to sterile field. 12:44:05 Medtronic 4074-52 PPM Lead opened to sterile field. 12:44:18 Medtronic 4574-45 PPM Lead opened to sterile field. 12:48:32 Medtronic field sales representative DEEP ORTEGA present for procedure. 12:49:16 Pre sharps counted by scrub and verified by RN: Sutures: 14; Sponges: 5; Stick needles: 2; Skin needles: 2; Blade: 1; Cautery: 1 12:49:19 Grounding pad site Left thigh. 12:49:21 Grounding pad site free from injury. 13:07:01 --------ALL STOP TIME OUT------ 13:07:02 Final Timeout: patient, procedure, and site verified with staff and physician. All members of the team are in agreement. 13:07:08 Left chest site verified by team. 13:07:11 Fire Safety Assessment: A--An alcohol-based skin anteseptic being used preoperatively., C--Open oxygen or nitrous oxide is being used., D--An ESU, laser, or fiber-optic light is being used. 13:07:14 Physical assessment completed. ASA score P 2 - A patient with mild systemic disease as per Jamil Todd MD. 13:07:16 Sedation plan: IV Moderate Sedation Medication:Versed, Fentanyl 13:09:10 Versed 2 mg I.V. was administered by Shayy Robison RN; for sedation; 13:09:16 Fentanyl 50 mcg I.V. was administered by Shayy Robison RN; for sedation; 13:10:48 Procedure started. 13:11:08 Lidocaine 1% was administered to left subclavicular area by Dmitry Cueto MD . 13:12:27 Incision made to left subclavicular area. 13:13:54 Versed 2 mg I.V. was administered by Shayy Robison RN; for sedation; 13:14:02 Fentanyl 50 mcg I.V. was administered by Shayy Robison RN; for sedation; 13:14:45 Generator pocket made/opened. 13:16:37 Left subclavian vein accessed with 7Fr Peel Away Sheath. 13:18:05 Left subclavian vein accessed with 7Fr Peel Away Sheath. 13:18:53 Ventricular lead inserted and advanced. 13:22:11 Atrial lead inserted and advanced. 13:32:38 Ventricular lead positioned. 13:37:31 Versed 2 mg I.V. was administered by Shayy Robison RN; for sedation; 13:37:35 Fentanyl 50 mcg I.V. was administered by Shayy Robison RN; for sedation; 13:40:30 Ventricular lead tested. 13:41:57 Atrial lead positioned. 13:42:22 Atrial lead tested. 13:43:37 Peel-a-way sheath was split and removed. 13:43:37 Peel-a-way sheath was split and removed. 13:43:58 PPM Dual was attached to lead(s) and inserted into pocket. 13:46:35 Atrial lead attachment was completed with 2-0 ticron. 13:46:40 Ventricular lead attachment was completed with 2-0 ticron. 13:46:49 PPM Dual was inserted subcutaneously to left chest. 13:47:45 Generator was sutured in place with 2-0 ticron. 13:47:51 Device pocket was irrigated with Ancef. 13:48:03 Subcutaneous closure was completed with 3-0 vicryl plus. 13:50:50 Skin closure was completed with 5-0 monocryl. 13:51:11 Parameters-- Generator: Mode: ADDIR. Lower Rate: 60bpm. Upper Rate: 120bpm. 13:51:43 Parameters--Atrial P/R Wave: 2.4mV. Current: .5mA; Threshold: .8V; Impedence: 560OHMS. 13:52:20 Parameters--Ventricular P/R Wave: 4.9mV. Current: .4mA; Threshold: .3V; Impedence: 1080OHMS. 13:53:37 Lt Chest incision was dressed with Mepilex dressing. 13:53:46 Procedure ended.(Physican Out) 13:54:33 Post sharps counted by scrub and verified by RN: Sutures: 14; Sponges: 5; Stick needles: 2; Skin needles: 2; Blade: 1; Cautery: 1 13:54:47 Fluoroscopy time 07.70 minutes. 13:54:55 Fluoroscopy dose: 233.2 mGy 13:54:55 Flurop Dose total: 233.2 13:55:04 Post-procedure physical assessment completed. ASA score P 2 - A patient with mild systemic disease as per Jamil Todd MD. 13:55:07 Post procedure rhythm: paced 13:55:10 Estimated blood loss: 10 ml 13:55:13 Post procedure instruction explained to patient.Patient verbalizes understanding. 13:55:14 Patient needs reinforcement of post procedure teaching. 13:55:47 Procedure type changed to Cath procedure, Diagnostic procedure, PPM/ICD, PPM Dual Implant, Sedation Charges, Moderate Sedation up to 30 minutes 13:56:06 Procedure and supply charges have been captured, reviewed, submitted and are correct. 13:56:08 Procedure Complication : No complications 13:56:09 Vital chart was stopped 13:56:10 See physician's report for complete and final results. 13:56:13 Report given to [facility]. 13:56:16 Patient transfered to [facility] with Bed. 13:56:19 Procedure ended. 13:56:19 Full Disclosure recording stopped 13:56:22 End room use (Document Last) Device Usage Item Name Manufacture Quantity Catalog Hospital Part Current Minimal Lot# / Serial# Number Charge Number Stock Stock Code 2-0 Ticron Ethicon 8 [id number] 89606 314198 5 Multipack ([id number]) 3-0 Vicryl Ethicon 1 [id number] 487191 827118 694539 5 Single Pack [id number] 5-0 Monocryl Ethicon 1 [id number] 362240 451716 374482 5 PS2 Y495G Immobilizer [place] 1 [id number] 322523 288482 037240 5 [facility] Medtronic Medtronic 1 [id number] 118086 121614 753744 5 [id number] Advisa MRI EXP: PPM Dual [id number] Generator [id number] Medtronic Medtronic 1 4074-52 724139 348312 586422 5 [id number] 4074-52 PPM EXP: Lead [id number] Medtronic Medtronic 1 4574-45 475626 524456 253458 5 [id number] 4574-45 PPM EXP: Lead [id number] Signature Audit [place] Stage Time Signature Unsigned Intra-Procedure 04/30/2018 Jessica Contreras 1:58:26 PM RT(R) Signatures Monitor : Jessica Contreras Signature : RT Date : Time : [place] [id number]
[2018-04-30] MEDS ORDERED: CRESTOR5 MG PO (11:19)
[2018-04-30] MEDS ORDERED: PERCOCET 10-321 EAC1 PO (11:19)
[2018-04-30 11:39] VITALS: BP 119/80; BMI 33.1
[2018-04-30 11:49] LABS: MCH 29.3 pg (26.0-34.0); MCHC 32.4 g/dL (31.0-37.0); MCV 90.7 fL (80.0-100.0); MEAN PLATELET VOLUME 9.8 fL (7.4-10.4); RBC 3.75 10x6/uL (4.00-5.40); WBC 6.7 10x3/uL (4.8-10.8)
[2018-04-30 12:02] LABS: ANION GAP 11.8 mmol/L (8-16); CALCIUM 8.8 mg/dL (8.5-10.1); POTASSIUM - SERUM 3.8 mmol/L (3.5-5.1)
[2018-04-30 12:03] LABS: APTT 24.5 SECONDS (22.8-39.4); PROTIME 12.7 SECONDS (11.6-15.0)
[2018-04-30 14:26] VITALS: BP 160/68; Ht 154.9 cm; Wt 78.2 kg
[2018-04-30 14:54] VITALS: BP 136/100
--- NOTE | 2018-04-30 20:00 | NUR ---
PATIENT INFORMED THAT SHE TOOK HER NIGHT MEDICATIONS THAT SHE BROUGHT FROM HOME. ONE OF THE MEDICATIONS IS A PAIN MEDICATION.
[2018-05-01 00:50] VITALS: BP 148/58
[2018-05-01 05:35] VITALS: BP 174/68
[2018-05-01 08:17] VITALS: BP 157/46
--- NOTE | 2018-05-01 10:30 | NUR ---
IV AND TELEMETRY DCD. DC PLANS GIVEN. UNDERSTANDING VOICED. ESCORTED TO CAR BY W/C.
--- NOTE | 2018-05-05 14:51 | OP ---
PATIENT NAME: ANGIE MARVIN MEDICAL RECORD: [id number] :34 LOCATION:D.CAT ADMISSION DATE: SURGEON: DEEPIKA DENT MD DATE OF OPERATION: 04/30/2018 PACEMAKER NOTE INDICATION: Sick sinus syndrome, PAF, and pauses. SURGEON: Dmitry Cueto MD DESCRIPTION OF PROCEDURE: After left subclavian was cannulated via modified Seldinger technique via Dr. Cueto, first under fluoroscopic guidance, I placed the right ventricular lead into the RV apex without difficulty. After adequate R waves and thresholds were obtained, again under fluoroscopic guidance, I placed the right atrial lead in the right atrial appendage without difficulty. After adequate P waves and thresholds were obtained, the leads were attached to the appropriate poles of the generator and pocket was closed via Dr. Cueto. IMPRESSION: Successful lead portion of permanent pacemaker on Angie Marvin. ESTIMATED BLOOD LOSS: Minimal. DISPOSITION: To the floor, stable. COMPLICATIONS: None. TRANSINT:[id number] Voice Confirmation ID: [id number] DOCUMENT ID: [id number] DEEPIKA DENT MD at 1451 CC: [id number] DICTATION DATE: 04/30/18 1351 MAINTENANCE SHOP WELDER: 04/30/18 1822 [facility] CLI 05/01/18 [facility] [address] [place] [address]
--- NOTE | 2018-05-07 09:41 | OP ---
PATIENT NAME: FEDE HANCOCK MEDICAL RECORD: [id number] :34 LOCATION:D.CAT ADMISSION DATE: SURGEON: DMITRY JOSEPH MD DATE OF OPERATION: 04/30/2018 PREOPERATIVE DIAGNOSES: 1. Atrial fibrillation. 2. Coronary artery disease. 3. Hypertension. 4. Hyperlipidemia. POSTOPERATIVE DIAGNOSES: 1. Atrial fibrillation. 2. Coronary artery disease. 3. Hypertension. 4. Hyperlipidemia. PROCEDURE: Left subclavian vein dual lead pacemaker placement. SURGEON: Dmitry Joseph MD CO-SURGEON: Jamil Mercedes MD REPORT OF OPERATION: The patient's left chest was prepped and draped in sterile fashion. A 20 mL of 1% lidocaine with epinephrine was infused into the surrounding tissues. A skin incision was made on the superolateral left chest and a subcutaneous pouch was made over the pectoral fascia. The left subclavian vein was accessed times 2 and guidewires were advanced with ease. Fluoro was used to note that the wires were in good position in the venous system. Dilator trocar device was placed over the wires and wires and dilators were removed. The leads were then advanced through the trocars. Once these were noted to be resting in good position in the venous system, then Dr. Mercedes positioned the leads appropriately in atrium and ventricle. Once the leads were noted to be functioning appropriately, then these were sutured into place with #0 Ti-Crons. The leads were affixed to the dual lead pacemaker and placed into the subcutaneous pouch, where it was sutured to the pectoral fascia with a #0 Ti-Cron. We irrigated out the wound with antibiotic solution and the subcutaneous tissues were reapproximated with interrupted 3-0 Vicryl and the skin was closed with running subcutaneous 5-0 Monocryl. COMPLICATIONS: None. CONDITION: Stable. ANESTHESIA: Local MAC. BLOOD LOSS: Minimal. TRANSINT:[id number] Voice Confirmation ID: [id number] DOCUMENT ID: [id number] OPERATIVE REPORT [id number] KARISSA,DMITRY JIMENEZ MD at 0941 CC: [id number] DICTATION DATE: 04/30/18 1356 CHIEF WHEELAGE CLERK: 04/30/18 1834 DEP CLI 05/01/18 [place] [id number] [place] [id number]
== END 2018-05-01 10:31 | disposition home or self-care (01) ==
LOC: D.CATH 10:55 → D.M2 14:06 → D.CATH 05-01 10:31
PROVIDERS: Internal Medicine Cardiovascular Disease
DX: I49.5 Sick sinus syndrome (principal); I25.10 Atherosclerotic heart disease of native coronary artery without angina pectoris; I10 Essential (primary) hypertension; E78.5 Hyperlipidemia, unspecified; Z01.812 Encounter for preprocedural laboratory examination

== ENCOUNTER 2018-05-05 17:50 | Inpatient (IN) | payer MEDICARE, BC ==
[~2018-05-05] VITALS: Ht 154.9 cm; Wt 79.5 kg
[~2018-05-05 17:50] MED LIST changes: +CRESTOR5 MG PO; +PERCOCET 10-321 EAC1 PO
[2018-05-05 19:06] LABS: BASOPHILS 0.5 % (0-2); EOSINOPHILS 1.5 % (0-7); HEMATOCRIT 35.8 % (36.0-48.0); HEMOGLOBIN 11.3 g/dL (12-16); IMMATURE GRANULOCYTES 0.1 % (0-5); LYMPHOCYTES 34.3 % (15-50); MCH 29.5 pg (26.0-34.0); MCHC 31.6 g/dL (31.0-37.0); MCV 93.5 fL (80.0-100.0); MEAN PLATELET VOLUME 9.9 fL (7.4-10.4); NEUTROPHILS 48.6 % (40-80); PLATELET COUNT 185 10x3/uL (130-400); RBC 3.83 10x6/uL (4.00-5.40); RDW 14.4 % (11.5-14.5)
[2018-05-05 19:23] LABS: APTT 28.3 SECONDS (22.8-39.4); INR 1.35 (0.85-1.17); PROTIME 16.1 SECONDS (11.6-15.0)
[2018-05-05 19:31] LABS: ALBUMIN 3.4 g/dL (3.4-5.0); ALKALINE PHOSPHATASE 74 U/L (46-116); ALT (SGPT) 15 U/L (10-68); BILIRUBIN - TOTAL 0.38 mg/dL (0.2-1.3); CALC OSMOLALITY 282 mosm/kg (275-300); CALCIUM 8.9 mg/dL (8.5-10.1); CARBON DIOXIDE 26.7 mmol/L (21.0-32.0); CHLORIDE - SERUM 103 mmol/L (98-107); CREATININE - SERUM 0.9 mg/dL (0.6-1.3); GLUCOSE 121 mg/dL (74-106); POTASSIUM - SERUM 4.2 mmol/L (3.5-5.1); PROTEIN - SERUM 7.1 g/dL (6.4-8.2); SODIUM 139 mmol/L (136-145); UREA NITROGEN 23 mg/dL (7-18); eGFR NON AFRICAN AMERICAN 63 mL/min (90-120)
[2018-05-05 19:42] LABS: CKMB 0.9 U/L (0.0-3.6); CREATINE KINASE 52 UL (21-215); MAGNESIUM - SERUM 1.9 mg/dL (1.8-2.4)
[2018-05-05 19:47] LABS: TROPONIN-I < 0.017 ng/mL (0.000-0.060)
--- NOTE | 2018-05-05 20:59 | NUR ---
PT LYING IN BED. NO DISTRESS NOTED. NO COMPLAINTS NOTED.
[2018-05-05 21:35] VITALS: BP 134/83
--- NOTE | 2018-05-05 23:05 | NUR ---
REPORT GIVEN TO YARELI ON MED II
--- NOTE | 2018-05-05 23:43 | NUR ---
PATIENT ARRIVED TO FLOOR VIA STRETCHER RESPIRATIONS ARE EVEN AND UNLABORED. PATIENT IS ALERT AND ORIENTED. NO S/S OF DISTRESS. NO S/S OF DISTRESS. CALL LIGHT WITHIN REACH WILL CPOC.
[2018-05-06 00:37] VITALS: BP 144/68; Ht 154.9 cm; Wt 79.5 kg
[2018-05-06 04:00] VITALS: BP 144/68
[2018-05-06 05:12] LABS: BASOPHILS 0.4 % (0-2); EOSINOPHILS 0.8 % (0-7); HEMATOCRIT 32.4 % (36.0-48.0); HEMOGLOBIN 10.4 g/dL (12-16); IMMATURE GRANULOCYTES 0.1 % (0-5); LYMPHOCYTES 44.5 % (15-50); MCH 29.3 pg (26.0-34.0); MCHC 32.1 g/dL (31.0-37.0); MEAN PLATELET VOLUME 9.9 fL (7.4-10.4); MONOCYTES 15.4 % (2-11); NEUTROPHILS 38.8 % (40-80); PLATELET COUNT 186 10x3/uL (130-400); RBC 3.55 10x6/uL (4.00-5.40); RDW 14.4 % (11.5-14.5); WBC 7.8 10x3/uL (4.8-10.8)
[2018-05-06 05:21] LABS: MCV 91.3 fL (80.0-100.0)
[2018-05-06 05:24] LABS: ALBUMIN 2.9 g/dL (3.4-5.0); BILIRUBIN - TOTAL 0.48 mg/dL (0.2-1.3); CALCIUM 8.5 mg/dL (8.5-10.1); CARBON DIOXIDE 28.9 mmol/L (21.0-32.0); CREATININE - SERUM 0.9 mg/dL (0.6-1.3); MAGNESIUM - SERUM 1.9 mg/dL (1.8-2.4); POTASSIUM - SERUM 3.9 mmol/L (3.5-5.1); PROTEIN - SERUM 6.3 g/dL (6.4-8.2); TROPONIN-I 0.032 ng/mL (0.000-0.060)
--- NOTE | 2018-05-06 07:40 | NUR ---
RESUMING PT CARE, PT LAYING IN BED ALERT AND ORIENTED LUPE Lima APRN WITH CARDIOLOGY AT BEDSIDE CHECKING PACEMAKER WITH MEDTRONIC DEVICE. CALL LIGHT IN REACH, WILL CONTINUE TO MONITOR AND FOLLOW PLAN OF CARE.
[2018-05-06 08:51] VITALS: BP 133/56
[2018-05-06 12:48] VITALS: BP 133/54
--- NOTE | 2018-05-06 12:54 | NUR ---
I have reviewed this patient and I concur with the Shift Assessment completed by the Licensed Practical Nurse today this shift.
--- NOTE | 2018-05-06 15:01 | EC ---
PATIENT:FEDE HANCOCK DATE OF SERVICE: 05/05/18 SEX: F MEDICAL RECORD: [id number] DATE OF : [birth year] LOCATION:D.M2 D.212 AGE OF PATIENT: 87 ADMISSION DATE: 05/05/18 REFERRING PHYSICIAN: INTERPRETING PHYSICIAN: DONNA CLARKE MD ECHOCARDIOGRAM REPORT ECHO CHARGES 4 ECHO COMPLETE Date: 05/06/18 CLINICAL DIAGNOSIS: CHF ECHOCARDIOGRAPHIC MEASUREMENTS (adult normal given) AC root (d.<3.7cm) 2.6 cm LV Septum d (<1.2 cm> 0.8 cm Valve Excursion 1.6 cm LV Septum (systole) 1.5 cm Left Atria (s.<4.0cm> 4.4 cm LVPW d(<1.2cm) 1.3 cm RV (d.<2.3cm) 2.8 cm LVPW (sytole) 1.8 cm LV diastole(<5.6CM) 5.5 cm MV E-F(>70mm/sec) cm LV systole 4.2 cm LVOT Diameter 1.7 cm MV exc.(>10mm) cm Est.ejection fraction (50-75%) % DOPPLER: LVIT cm/sec A 72 cm/sec E 110 cm/sec LA cm/sec RVSP 39.5 mmHg LVOT 122 cm/sec AOP1/2T m/s Asc. Ao 188 cm/sec RVOT 79 cm/sec RA cm/sec PA 95 cm/sec AV Gradient Peak 14.2 mmHg AV Mean 7.2 mmHg AV Area 1.6 cm MV Gradient Peak 9.1 mmHg MV Mean 3.5 mmHg MV Area cm COMMENTS: Allergy Physician: Liam [facility] Division Chief: 1 Dr. Clarke TAPE# PACS Pericardial Effusion N DATE OF SERVICE: 05/06/2018 FINDINGS: 1. Left ventricular chamber size is within normal limits. Left ventricular systolic function is normal. Overall ejection fraction estimated 55% to 60%. Left atrium is enlarged at 4.4 cm. Right atrium and right ventricle chamber sizes are as well mildly dilated. 2. Valvular structures have normal structure and motion. 3. Doppler interrogation reveals moderate aortic insufficiency, mild mitral regurgitation, trace tricuspid regurgitation, no other valvular insufficiency or ECHOCARDIOGRAM REPORT [id number] FEDE HANCOCK stenosis. Pulmonary systolic pressure is estimated 39 mmHg. 4. No evidence of pericardial effusion or left ventricular thrombus. TRANSINT:[id number] Voice Confirmation ID: [id number] DOCUMENT ID: [id number] DONNA CLARKE MD at 1501 CC: [id number] DICTATION DATE: 05/06/18 1227 PERSONAL FITNESS MANAGER: 05/06/18 1420 ADM [address] [place] [id number] [place] [address]
[2018-05-06] MEDS ORDERED: AMOX TR-K CLV 21 TAB PO (15:39)
--- NOTE | 2018-05-06 16:01 | MORECARE ---
CASE MANAGEMENT DISCHARGE SUMMARY PATIENT: FEDE HANCOCK FARRUKH UNIT: [id number] ADM DATE: 05/05/18 AGE: 87 : [birth year] SEX: F ROOM/BED: D.1093 AUTHOR: SOWMYA,DOC PHYSICIAN: REFERRING PHYSICIAN: DONNA WHEAT MD DATE OF SERVICE: 05/06/18 Discharge Plan Patient Name: FEDE HANCOCK Facility: [facility]:[place] : 1930 Planned Disposition: Home Anticipated Discharge Date: 05/06/18 Discharge Date: Expected LOS: 1 Initial Reviewer: [email or web address] Initial Review Date: 05/06/2018 Generated: 05/06/18 5:01 pm Comments DCP- Discharge Planning Updated by [email or web address]: Bib Arroyo on 05/06/18 3:[address] Patient Name: FEDE HANCOCK Admission Status: ER Accout number: [id number] Admission Date: 05-05-2018 : 1930 Admission Diagnosis: Attending: ANGELITO WHEAT Current LOS: 1 Anticipated DC Date: 05-06-2018 Planned Disposition: Home Primary Insurance: MEDICARE A & B Discharge Planning Comments: CM MET WITH PT IN ROOM TO DISCUSS DISCHARGE PLANNING AND NEEDS. PT REPORTS LIVING AT [facility] IN INDEPENDENT LIVING APARTMENT ALONE. THEY PROVIDE TRANSPORTATION AND MEAL SERVICES. PT HAS ROLLATOR WALKER AND CANE WITH NO MEDICAL EQUIPMENT PROVIDER PREFERENCE. PT HAS NO OUTSIDE SERVICES ASSISTING IN THE HOME. CM DISCUSSED AVAILABILITY OF HOME HEALTH, REHAB SERVICES AND MEDICAL EQUIPMENT. PT DENIES DISCHARGE NEEDS, REPORTS [facility] (NOW [place]) WILL PICK HER UP FOR DISCHARGE HOME TODAY. FOREIGN BANKNOTE TELLER TRADER NURSE NOTIFIED. Services Clerk: Bib Arroyo DCPIA - Discharge Planning Initial Assessment Updated by [email or web address]: Bib Arroyo on 05/06/18 3:59 pm * Is the patient Alert and Oriented? Yes * How many steps to enter\exit or inside your home? NONE * PCP DR. MICHELLE * Pharmacy [facility] ([place]) * Preadmission Environment Home Alone * ADLs Independent * Equipment Cane Other * Other Equipment ROLLATOR WALKER NO MEDICAL EQUIPMENT PROVIDER PREFERENCE * List name and contact numbers for known caregivers / representatives who currently or will assist patient after discharge: ARIADNA HERNANDEZ, * Verbal permission to speak to the caregivers and representatives has been obtained from the patient. N/A * Community resources currently utilized None * Please name any agencies selected above. NONE * Additional services required to return to the preadmission environment? No * Can the patient safely return to the preadmission environment? Yes * Has this patient been hospitalized within the prior 30 days at any hospital? No Patient Name: FEDE HANCOCK Page [id number] at 1601 All edits/amendments must be made on the electronic document DICTATION DATE: 05/06/181599 COMPUTER SUPPORT ANALYST: GURINDER 05/06/181599 RPT#: [id number] DC DATE: STATUS: ADM IN [facility] [address] [place] [address] END OF REPORT
--- NOTE | 2018-05-06 16:37 | NUR ---
PT IS BEING DISCHARGED AND NOTED SANZ CATHETER IS IN WITH NO APPROPRIATE INDICATION. D/C PER NURSE DRIVEN PROTOCOL. DEFLATED 8CC OF FLUID FROM BALLOON AND PULLED WITH CATHETER TIP FULLY INTACT. PT VERBALIZED UNDERSTANDING ON HOW TO WATCH FOR RENTENTION. PT STATES SHE HAS NO ISSUES VOIDING. DISCUSSED WITH PRIMARY NURSE MARBIN. NO FURTHER NEEDS.
--- NOTE | 2018-05-07 10:22 | DS ---
PATIENT:FEDE MARVIN :34 MEDICAL RECORD: [id number] DISCHARGE SUMMARY ADMISSION DATE: 05/05/18 DISCHARGE DATE: 05/06/18 DATE OF DISCHARGE: 05/06/2018 DISCHARGE DIAGNOSES: 1. Bronchitis. 2. Shortness of breath. 3. Chest pain. 4. Hypertension. 5. Hyperlipidemia. HOSPITAL COURSE: Mrs. Marvin presents with chest pain, but only during coughing episodes. She has been having a productive cough and a low-grade temperature for a number of days now. Her echo was normal. Troponins were normal. EKG has been normal. Telemetry has been normal. Chest x-ray was overall normal. Most likely her symptoms are secondary to bronchitis. We will discharge her home on Augmentin 500 b.i.d., keep her cardiac followup as previously scheduled. TRANSINT:[id number] Voice Confirmation ID: [id number] DOCUMENT ID: [id number] DONNA WHEAT MD at 1022 CC: [id number] DICTATION DATE: 05/06/18 1502 RESIDENTIAL DRIVER: 05/07/18 0111 DIS IN 05/06/18 [place] [id number] [place] [id number]
== END 2018-05-06 17:11 | disposition home or self-care (01) | DRG 203 ==
LOC: D.ER 17:50 → D.EDHOLD 22:22 → D.M2 22:22
PROVIDERS: Emergency Medicine; Family Medicine; ADMIT Internal Medicine Interventional Cardiology; ATTEND Internal Medicine Interventional Cardiology
DX: J40 Bronchitis, not specified as acute or chronic (principal); R42 Dizziness and giddiness; I48.0 Paroxysmal atrial fibrillation; K21.9 Gastro-esophageal reflux disease without esophagitis; I10 Essential (primary) hypertension; I25.10 Atherosclerotic heart disease of native coronary artery without angina pectoris; I49.5 Sick sinus syndrome; E78.5 Hyperlipidemia, unspecified; Z95.0 Presence of cardiac pacemaker; R55 Syncope and collapse; R41.3 Other amnesia

== ENCOUNTER 2018-05-07 12:09 | Emergency (ER) | payer MEDICARE, BC ==
[~2018-05-07] VITALS: Ht 154.9 cm; Wt 79.5 kg
[~2018-05-07 12:09] MED LIST changes: +AMOX TR-K CLV 21 TAB PO
[2018-05-07 12:11] VITALS: Ht 154.9 cm; Wt 79.5 kg
[2018-05-07 13:35] LABS: BASOPHILS 0.4 % (0-2); HEMATOCRIT 33.3 % (36.0-48.0); HEMOGLOBIN 10.8 g/dL (12-16); IMMATURE GRANULOCYTES 0.1 % (0-5); MCH 29.4 pg (26.0-34.0); MCHC 32.4 g/dL (31.0-37.0); MCV 90.7 fL (80.0-100.0); MEAN PLATELET VOLUME 9.6 fL (7.4-10.4); MONOCYTES 11.2 % (2-11); NEUTROPHILS 52.3 % (40-80); PLATELET COUNT 186 10x3/uL (130-400); RBC 3.67 10x6/uL (4.00-5.40); RDW 14.3 % (11.5-14.5); WBC 7.3 10x3/uL (4.8-10.8)
[2018-05-07 13:48] LABS: ALBUMIN 3.3 g/dL (3.4-5.0); ANION GAP 11.7 mmol/L (8-16); BILIRUBIN - TOTAL 0.49 mg/dL (0.2-1.3); CALCIUM 8.7 mg/dL (8.5-10.1); CARBON DIOXIDE 28.2 mmol/L (21.0-32.0); CREATININE - SERUM 0.9 mg/dL (0.6-1.3); POTASSIUM - SERUM 3.9 mmol/L (3.5-5.1); PROTEIN - SERUM 6.9 g/dL (6.4-8.2)
[2018-05-07 13:51] LABS: TROPONIN-I 0.019 ng/mL (0.000-0.060)
[2018-05-07 15:30] VITALS: BP 126/52
== END 2018-05-07 15:30 | disposition home or self-care (01) ==
LOC: D.ER 12:09
PROVIDERS: Family Medicine
DX: R07.89 Other chest pain (principal); K21.9 Gastro-esophageal reflux disease without esophagitis

== ENCOUNTER 2018-08-26 05:15 | Inpatient (IN) | payer MEDICARE, BC ==
[~2018-08-26] VITALS: Ht 154.9 cm; Wt 77.3 kg
[2018-08-26] MEDS ORDERED: BETAPACE 80 MG80 MG PO (05:19)
[2018-08-26 06:02] LABS: BASOPHILS 0.5 % (0-2); EOSINOPHILS 2.3 % (0-7); HEMATOCRIT 36.5 % (36.0-48.0); HEMOGLOBIN 12.1 g/dL (12-16); IMMATURE GRANULOCYTES 0.1 % (0-5); LYMPHOCYTES 31.4 % (15-50); MCH 29.4 pg (26.0-34.0); MCHC 33.2 g/dL (31.0-37.0); MCV 88.8 fL (80.0-100.0); MONOCYTES 12.2 % (2-11); NEUTROPHILS 53.5 % (40-80); PLATELET COUNT 191 10x3/uL (130-400); RBC 4.11 10x6/uL (4.00-5.40); WBC 7.8 10x3/uL (4.8-10.8)
[2018-08-26 06:20] LABS: INR 2.47 (0.85-1.17)
[2018-08-26 06:21] LABS: APTT 45.1 SECONDS (22.8-39.4)
[2018-08-26 06:22] LABS: ALBUMIN 3.4 g/dL (3.4-5.0); ALKALINE PHOSPHATASE 66 U/L (46-116); ALT (SGPT) 24 U/L (10-68); BILIRUBIN - TOTAL 0.59 mg/dL (0.2-1.3); CALC OSMOLALITY 279 mosm/kg (275-300); CALCIUM 9.1 mg/dL (8.5-10.1); CARBON DIOXIDE 26.7 mmol/L (21.0-32.0); CHLORIDE - SERUM 103 mmol/L (98-107); CREATININE - SERUM 0.7 mg/dL (0.6-1.3); GLUCOSE 122 mg/dL (74-106); POTASSIUM - SERUM 3.9 mmol/L (3.5-5.1); PROTEIN - SERUM 7.1 g/dL (6.4-8.2); SODIUM 138 mmol/L (136-145); UREA NITROGEN 21 mg/dL (7-18); eGFR NON AFRICAN AMERICAN 84 mL/min (90-120)
[2018-08-26 06:33] LABS: CKMB 1.4 U/L (0.0-3.6); CREATINE KINASE 74 UL (21-215); MAGNESIUM - SERUM 1.9 mg/dL (1.8-2.4)
[2018-08-26 06:34] LABS: TROPONIN-I < 0.017 ng/mL (0.000-0.060)
--- NOTE | 2018-08-26 06:38 | NUR ---
NOTIFIED DR. YANEZ THAT PT IS REQUESTING AN OXYCODONE D/T HER BACK WAS HURTING. REPOSITIONED PT FOR COMFORT
[2018-08-26 07:01] LABS: APPEARANCE CLOUDY (CLEAR); COLOR STRAW (YELLOW); SPECIFIC GRAVITY 1.005 (1.005-1.020)
[2018-08-26 07:02] LABS: BILIRUBIN NEGATIVE (NEGATIVE); GLUCOSE NEGATIVE (NEGATIVE); KETONE NEGATIVE (NEGATIVE); PROTEIN TRACE mg/dL (NEGATIVE); UROBILINOGEN NORMAL (NORMAL)
[2018-08-26 07:03] LABS: RED CELLS - URINE 0-5 /hpf (0-5)
[2018-08-26 07:04] LABS: BACTERIA MANY /hpf (NONE SEEN); EPITHELIAL CELLS NSEEN /hpf (0-5); NITRITE POSITIVE (NEGATIVE)
[2018-08-26 07:05] LABS: AMORPHOUS SEDIMENT >1+ /lpf (NONE SEEN); UDS - AMPHET NEGATIVE QUAL (NEGATIVE); UDS - BARB NEGATIVE QUAL (NEGATIVE); UDS - BENZO NEGATIVE QUAL (NEGATIVE); UDS - COCAINE NEGATIVE QUAL (NEGATIVE); UDS - OPIATE NEGATIVE QUAL (NEGATIVE); UDS - PCP NEGATIVE QUAL (NEGATIVE); UDS - THC NEGATIVE QUAL (NEGATIVE)
--- NOTE | 2018-08-26 07:08 | NUR ---
REPROT GIVEN TO STAN RUSS
--- NOTE | 2018-08-26 10:10 | NUR ---
PT TO ROOM 2215 FROM ER VIA STRETCHER. PT IS WITHOUT DISTRESS.ASSESSMENT PER FLOW SHEET.PT INSTRUCTED LOCKED CASE WITH MEDS WOULD HAVE TO BE TOOK HOME BY FAMILY.FALL PREVENTION INITIATED WITH BED ALARM,BAND,SOCKS AND GOWN.CALL LIGHT IN REACH
[2018-08-26 10:26] VITALS: BP 182/60; BMI 32.2
[2018-08-26 12:24] VITALS: BP 182/60
--- NOTE | 2018-08-26 12:30 | NUR ---
[facility] FROM [facility] IS HERE TO GET PT MEDS THAT ARE LOCKED IN CASE. MED GIVEN TO [facility] FOR TRANSPORT BACK TO [facility]
--- NOTE | 2018-08-26 14:44 | NUR ---
NAPPING WITHOUT DISTRESS.PT IS WITHOUT SIGNS OF PAIN
[2018-08-26 18:20] VITALS: BP 134/50
--- NOTE | 2018-08-26 18:24 | NUR ---
SPOKE WITH DR YOU. TOLD MD PATIENT HAS ALLERGY TO CONTRAST DYE AND IS SCHEDULED FOR CT. STATED INITIATED PREMED PROTOCOL FOR CONTRAST DYE ALLERGY AND DO CT TOMORROW. SPOKE WITH PHARMACY WHO STATED START PREMED PROTOCOL AT 1900 TONIGHT. PREMED PROTOCOL ORDER PLACED.
--- NOTE | 2018-08-26 20:00 | NUR ---
ASSESSMENT PER FLOWSHEET. IV PATENT RT AC OF NS AT 100CC'S/HR. BED ALARM BED ON YELLOW SAFETY MEASURES IN USE. DENIES PAIN OR DISCOMFORT. DENIES ANY NUMBNESS OR TINGLING. SANZ TO BEDSIDE DRAINAGE WITH YELLOW URINE.
[2018-08-26 21:14] VITALS: BP 170/65
--- NOTE | 2018-08-26 21:15 | NUR ---
MEDS GIVEN PER MAR.
--- NOTE | 2018-08-27 | NUR ---
EYES CLOSED RESPIRATIONS WITH EASE AND UNLABORED.
--- NOTE | 2018-08-27 01:00 | NUR ---
MEDS GIVEN PER MAR.
[2018-08-27 01:15] VITALS: BP 174/60
--- NOTE | 2018-08-27 03:00 | NUR ---
EYES CLOSED RESPIRATIONS WITH EASE AND UNLABORED.
[2018-08-27 04:55] VITALS: BP 138/59
[2018-08-27 05:25] LABS: BASOPHILS 0.2 % (0-2); EOSINOPHILS 0 % (0-7); HEMATOCRIT 33.8 % (36.0-48.0); HEMOGLOBIN 10.8 g/dL (12-16); IMMATURE GRANULOCYTES 0.4 % (0-5); LYMPHOCYTES 28.8 % (15-50); MCH 28.6 pg (26.0-34.0); MCV 89.4 fL (80.0-100.0); MEAN PLATELET VOLUME 9.6 fL (7.4-10.4); MONOCYTES 2.7 % (2-11); NEUTROPHILS 67.9 % (40-80); PLATELET COUNT 172 10x3/uL (130-400); RBC 3.78 10x6/uL (4.00-5.40); RDW 14.3 % (11.5-14.5)
[2018-08-27 05:38] LABS: CALC OSMOLALITY 283 mosm/kg (275-300); CALCIUM 8.2 mg/dL (8.5-10.1); CHLORIDE - SERUM 108 mmol/L (98-107); CREATININE - SERUM 0.6 mg/dL (0.6-1.3); GLUCOSE 145 mg/dL (74-106); POTASSIUM - SERUM 4.3 mmol/L (3.5-5.1); SODIUM 141 mmol/L (136-145); eGFR NON AFRICAN AMERICAN > 90 mL/min (90-120)
[2018-08-27 05:39] LABS: UREA NITROGEN 13 mg/dL (7-18)
[2018-08-27 05:51] LABS: INR 1.81 (0.85-1.17); PROTIME 20.3 SECONDS (11.6-15.0)
[2018-08-27 05:53] LABS: WBC 4.8 10x3/uL (4.8-10.8)
[2018-08-27 13:55] VITALS: BP 143/61
[2018-08-27 17:27] VITALS: Ht 154.9 cm; Wt 77.3 kg
[2018-08-27 17:34] VITALS: BP 107/32
[2018-08-27 20:00] VITALS: BP 159/59
[2018-08-28 01:08] VITALS: BP 165/68
--- NOTE | 2018-08-28 02:51 | NUR ---
PT ALERT AND ORIENTED. ON ROOM AIR. HAS LEFT HAND IV THE IS INFUSING NS @ 100. SANZ CATHETER. DENIES FURTHER NEEDS AT THIS TIME. CALL LIGHT IN REACH.
--- NOTE | 2018-08-28 03:00 | NUR ---
I have reviewed this patient and I concur with the Shift Assessment completed by the Licensed Practical Nurse today this shift.
[2018-08-28 05:21] VITALS: BP 154/74
[2018-08-28 06:50] LABS: BASOPHILS 0.1 % (0-2); EOSINOPHILS 0 % (0-7); HEMATOCRIT 32.8 % (36.0-48.0); HEMOGLOBIN 10.5 g/dL (12-16); IMMATURE GRANULOCYTES 0.2 % (0-5); LYMPHOCYTES 26.8 % (15-50); MCH 28.8 pg (26.0-34.0); MCV 89.9 fL (80.0-100.0); MEAN PLATELET VOLUME 9.5 fL (7.4-10.4); MONOCYTES 13.3 % (2-11); NEUTROPHILS 59.6 % (40-80); PLATELET COUNT 161 10x3/uL (130-400); RBC 3.65 10x6/uL (4.00-5.40); RDW 14.3 % (11.5-14.5); WBC 10.4 10x3/uL (4.8-10.8)
[2018-08-28 06:57] LABS: INR 1.71 (0.85-1.17); PROTIME 19.5 SECONDS (11.6-15.0)
[2018-08-28 07:01] LABS: ANION GAP 7.5 mmol/L (8-16); CALCIUM 8.4 mg/dL (8.5-10.1); CARBON DIOXIDE 27.5 mmol/L (21.0-32.0)
[2018-08-28 07:02] LABS: CREATININE - SERUM 0.9 mg/dL (0.6-1.3)
--- NOTE | 2018-08-28 08:00 | NUR ---
PT IS WITHOUT DISTRESS.MONITOR FOR NEEDS
[2018-08-28 10:30] VITALS: BP 146/60
[2018-08-28 12:00] VITALS: BP 144/56
[2018-08-28] MEDS ORDERED: SULFAMETHOXAZOL1 TA3 PO (12:20)
--- NOTE | 2018-08-28 13:59 | MORECARE ---
CASE MANAGEMENT DISCHARGE SUMMARY PATIENT: FEDE HANCOCK FARRUKH UNIT: [id number] ADM DATE: 08/27/18 AGE: 87 : 32 SEX: F ROOM/BED: D.2215 AUTHOR: NYDIA DENG PHYSICIAN: REFERRING PHYSICIAN: HARRY YOU MD DATE OF SERVICE: 08/28/18 Discharge Plan Patient Name: FEDE HANCOCK [facility] [facility] 1930 Planned Disposition: Home or Self Care Anticipated Discharge Date: Discharge Date: Expected LOS: Initial Reviewer: [email or web address] Initial Review Date: 08/26/2018 Generated: 08/28/18 2:59 pm DCPIA - Discharge Planning Initial Assessment Updated by [email or web address]: Marisabel Driver on 08/28/18 1:54 pm * Is the patient Alert and Oriented? Yes * How many steps to enter\exit or inside your home? * PCP Zachary * [facility]acy [facility] ([place]) * Preadmission Environment Home Alone * ADLs Independent * Equipment Cane Rolling Walker * List name and contact numbers for known caregivers / representatives who currently or will assist patient after discharge: Gauri [phone] * Verbal permission to speak to the caregivers and representatives has been obtained from the patient. N/A * Community resources currently utilized Other * Please name any agencies selected above. [facility] * Additional services required to return to the preadmission environment? No * Can the patient safely return to the preadmission environment? Yes * Has this patient been hospitalized within the prior 30 days at any hospital? No Patient Name: FEDE HANCOCK Page 88576 at 1359 All edits/amendments must be made on the electronic document DICTATION DATE: 08/28/18 1358 ACETYLENE TORCH SOLDERER: GURINDER 08/28/18 1358 RPT#: [id number] DC DATE: STATUS: ADM IN [facility] [address] [place] [address] END OF REPORT
--- NOTE | 2018-08-28 14:24 | MORECARE ---
CASE MANAGEMENT DISCHARGE SUMMARY PATIENT: FEDE HANCOCK FARRUKH UNIT: [id number] ADM DATE: 08/27/18 AGE: 87 : 32 SEX: F ROOM/BED: D.1682 AUTHOR: SOWMYA,DOC PHYSICIAN: REFERRING PHYSICIAN: HARRY YOU MD DATE OF SERVICE: 08/28/18 Discharge Plan Patient Name: FEDE HANCOCK Facility: [facility]:[place] : 1930 Planned Disposition: Home or Self Care Anticipated Discharge Date: Discharge Date: Expected LOS: Initial Reviewer: [email or web address] Initial Review Date: 08/26/2018 Generated: 08/28/18 3:24 pm Comments DCP- Discharge Planning Updated by [email or web address]: Marisabel Driver on 08/28/18 1:[address] Patient Name: FEDE HANCOCK Admission Status: ER Accout number: [id number] Admission Date: 08-27-2018 : 1930 Admission Diagnosis: Attending: HARRY YOU Current LOS: 1 Anticipated DC Date: Planned Disposition: Home or Self Care Primary Insurance: MEDICARE A & B Discharge Planning Comments: CM met with patient to complete initial dc planning assessment. CM educated patient on the CM role and verbal consent given by patient to complete assessment. Patient lives at [facility] where she stated she is independent with her care. At discharge patient plans to return home and feels this is a safe discharge. Patient has already contacted [facility] to come pick her up. CM discussed availability of home health, rehab services, and medical equipment. Patient has [facility] company who is also home health for her. She stated that she has already called them and they are aware of her discharging. Patient has a walker and a cane at home. Patient denied known discharge needs at this time. CM will continue to follow and will assist as needed with dc plans/needs. Music Mixer: Marisabel Driver DCPIA - Discharge Planning Initial Assessment Updated by [email or web address]: Marisabel Driver on 08/28/18 1:54 pm * Is the patient Alert and Oriented? Yes * How many steps to enter\exit or inside your home? * PCP Zachary * [facility]acy [facility] ([place]) * Preadmission Environment Home Alone * ADLs Independent * Equipment Cane Rolling Walker * List name and contact numbers for known caregivers / representatives who currently or will assist patient after discharge: Gauri [phone] * Verbal permission to speak to the caregivers and representatives has been obtained from the patient. N/A * Community resources currently utilized Other * Please name any agencies selected above. [facility] * Additional services required to return to the preadmission environment? No * Can the patient safely return to the preadmission environment? Yes * Has this patient been hospitalized within the prior 30 days at any hospital? No Last DP export: 08/28/18 12:59 p Patient Name: FEDE HANCOCK Page 05361 at 1424 All edits/amendments must be made on the electronic document DICTATION DATE: 08/28/181423 PHOTO FINISH PHOTOGRAPHER: GURINDER 08/28/181423 RPT#: [id number] DC DATE: STATUS: ADM IN [facility] [address] [place] [address] END OF REPORT
--- NOTE | 2018-08-31 08:45 | MORECARE ---
CASE MANAGEMENT DISCHARGE SUMMARY PATIENT: FEDE HANCOCK FARRUKH UNIT: [id number] ADM DATE: 08/27/18 AGE: 87 : 32 SEX: F ROOM/BED: D.3485 AUTHOR: SOWMYADOC PHYSICIAN: REFERRING PHYSICIAN: HARRY YOU MD DATE OF SERVICE: 08/31/18 Discharge Plan Patient Name: FEDE HANCOCK Facility: [facility]:[place] : 1930 Planned Disposition: Home or Self Care Anticipated Discharge Date: Discharge Date: 08/28/2018 Expected LOS: Initial Reviewer: [email or web address] Initial Review Date: 08/26/2018 Generated: 08/31/18 9:45 am Comments DCP- Discharge Planning Updated by [email or web address]: Marisabel Driver on 08/28/18 1:[address] Patient Name: FEDE HANCOCK Admission Status: ER Accout number: [id number] Admission Date: 08-27-2018 : 1930 Admission Diagnosis: Attending: HARRY YOU Current LOS: 1 Anticipated DC Date: Planned Disposition: Home or Self Care Primary Insurance: MEDICARE A & B Discharge Planning Comments: CM met with patient to complete initial dc planning assessment. CM educated patient on the CM role and verbal consent given by patient to complete assessment. Patient lives at [facility] where she stated she is independent with her care. At discharge patient plans to return home and feels this is a safe discharge. Patient has already contacted [facility] to come pick her up. CM discussed availability of home health, rehab services, and medical equipment. Patient has [facility]iative Care company who is also home health for her. She stated that she has already called them and they are aware of her discharging. Patient has a walker and a cane at home. Patient denied known discharge needs at this time. CM will continue to follow and will assist as needed with dc plans/needs. Veneer Drier: Marisabel Driver DCPIA - Discharge Planning Initial Assessment Updated by [email or web address]: Marisabel Driver on 08/28/18 1:54 pm * Is the patient Alert and Oriented? Yes * How many steps to enter\exit or inside your home? * PCP Zachary * [facility]acy [facility] ([place]) * Preadmission Environment Home Alone * ADLs Independent * Equipment Cane Rolling Walker * List name and contact numbers for known caregivers / representatives who currently or will assist patient after discharge: Gauri [phone] * Verbal permission to speak to the caregivers and representatives has been obtained from the patient. N/A * Community resources currently utilized Other * Please name any agencies selected above. [facility] * Additional services required to return to the preadmission environment? No * Can the patient safely return to the preadmission environment? Yes * Has this patient been hospitalized within the prior 30 days at any hospital? No Last DP export: 08/28/18 1:24 p Patient Name: FEDE HANCOCK Page 45538 at 0845 All edits/amendments must be made on the electronic document DICTATION DATE: 08/31/1844 WIND TURBINE ENGINEER: GURINDER 08/31/18 0844 RPT#: [id number] DC DATE:08/28/18 STATUS: DIS IN [facility] [address] [place] [address] END OF REPORT
== END 2018-08-28 16:02 | disposition home or self-care (01) | DRG 699 ==
LOC: D.ER 05:15 → D.MS 09:16 → OBSVTIME 09:17 → D.MS 08-27 15:33
PROVIDERS: Family Medicine; ADMIT Internal Medicine Nephrology; ATTEND Internal Medicine Nephrology
DX: T83.511A Infection and inflammatory reaction due to indwelling urethral catheter, initial encounter (principal); D68.9 Coagulation defect, unspecified; N39.0 Urinary tract infection, site not specified; N81.10 Cystocele, unspecified; I10 Essential (primary) hypertension; I25.10 Atherosclerotic heart disease of native coronary artery without angina pectoris; N63.0 Unspecified lump in unspecified breast; M54.40 Lumbago with sciatica, unspecified side

== ENCOUNTER → 2018-09-18 16:44 | Outpatient (CLI) | payer MEDICARE, BC ==
[2018-08-27 17:27] VITALS: BMI 32.2
[~2018-09-18 16:44] MED LIST changes: +BETAPACE 80 MG80 MG PO; +SULFAMETHOXAZOL1 TA3 PO
== END | disposition home or self-care (01) ==
LOC: D.LABREF 16:44
PROVIDERS: ATTEND Urology
DX: N39.0 Urinary tract infection, site not specified (principal)

== ENCOUNTER 2018-09-30 09:00 | Outpatient (CLI) | payer MEDICARE, BC ==
[2018-08-27 17:27] VITALS: BMI 32.2
== END 2018-09-30 10:00 | disposition home or self-care (01) ==
LOC: D.MAMMO 09:00
PROVIDERS: ATTEND Family Medicine
DX: R92.8 Other abnormal and inconclusive findings on diagnostic imaging of breast (principal)

== ENCOUNTER 2018-10-02 19:45 | Emergency (ER) | payer MEDICARE, BC ==
[~2018-10-02] VITALS: Ht 154.9 cm; Wt 77.3 kg
[2018-10-02 19:53] VITALS: Ht 154.9 cm; Wt 77.3 kg
[2018-10-02] MEDS ORDERED: CATAPRES0.1 MG PO (20:01)
[2018-10-02] MEDS ORDERED: ISOSORBIDE MONO60 M1 PO (20:02)
[2018-10-02] MEDS ORDERED: DURAGESIC1 PATCH .7 (20:03)
[2018-10-02 20:57] LABS: BASOPHILS 0.6 % (0-2); HEMATOCRIT 31.1 % (36.0-48.0); HEMOGLOBIN 10.4 g/dL (12-16); IMMATURE GRANULOCYTES 0.3 % (0-5); LYMPHOCYTES 45.2 % (15-50); MCH 29.4 pg (26.0-34.0); MCHC 33.4 g/dL (31.0-37.0); MCV 87.9 fL (80.0-100.0); MEAN PLATELET VOLUME 9.3 fL (7.4-10.4); MONOCYTES 15.9 % (2-11); RBC 3.54 10x6/uL (4.00-5.40); RDW 13.8 % (11.5-14.5); WBC 6.4 10x3/uL (4.8-10.8)
[2018-10-02 20:58] LABS: PLATELET COUNT 197 10x3/uL (130-400)
[2018-10-02 21:02] LABS: ALBUMIN 3.3 g/dL (3.4-5.0); ANION GAP 11.6 mmol/L (8-16); BILIRUBIN - TOTAL 0.3 mg/dL (0.2-1.3); CALCIUM 8.4 mg/dL (8.5-10.1); CARBON DIOXIDE 27.5 mmol/L (21.0-32.0); CREATININE - SERUM 1.2 mg/dL (0.6-1.3); POTASSIUM - SERUM 4.1 mmol/L (3.5-5.1); PROTEIN - SERUM 6.4 g/dL (6.4-8.2)
[2018-10-02 22:16] LABS: APPEARANCE CLEAR (CLEAR); BACTERIA FEW /hpf (NONE SEEN); BILIRUBIN NEGATIVE (NEGATIVE); COLOR YELLOW (YELLOW); GLUCOSE NEGATIVE (NEGATIVE); KETONE NEGATIVE (NEGATIVE); NITRITE NEGATIVE (NEGATIVE); PROTEIN NEGATIVE (NEGATIVE); RED CELLS - URINE OCC /hpf (0-5); UROBILINOGEN NORMAL (NORMAL); WHITE CELLS - URINE 0-5 /hpf (0-5)
[2018-10-03 00:15] VITALS: BP 131/59
== END 2018-10-02 23:46 | disposition home or self-care (01) ==
LOC: D.ER 19:45
PROVIDERS: Family Medicine
DX: T83.84XA Pain due to genitourinary prosthetic devices, implants and grafts, initial encounter (principal); Y84.9 Medical procedure, unspecified as the cause of abnormal reaction of the patient, or of later complication, without mention of misadventure at the time of the procedure; I10 Essential (primary) hypertension; F32.9 Major depressive disorder, single episode, unspecified

== ENCOUNTER → 2018-10-07 18:45 | Outpatient (CLI) | payer MEDICARE, BC ==
[2018-10-02 19:53] VITALS: BMI 32.2
[~2018-10-07 18:45] MED LIST changes: +CATAPRES0.1 MG PO; +DURAGESIC1 PATCH .7; +ISOSORBIDE MONO60 M1 PO
== END | disposition home or self-care (01) ==
LOC: D.LABREF 18:45
PROVIDERS: ATTEND Urology
DX: N39.0 Urinary tract infection, site not specified (principal)

== ENCOUNTER 2018-10-13 13:16 | Inpatient (IN) | payer MEDICARE, BC ==
[~2018-10-13] VITALS: Ht 154.9 cm; Wt 77.3 kg
--- NOTE | 2018-10-13 13:45 | NUR ---
NEW PATIENT ADMIT FROM HOME. PATIENT TO ROOM VIA AND HOSPITAL STAFF. PATIENT IS ALERT AND ORIENTED X 4. PATIENT IS A GOOD HISTORIAN. ADMISSION HISTORY AND ASSSEMENT COMPLETED. PATIENT HAS CHRONIC SANZ INTACT AND DRAINING CLOUDY, GOLD URINE. VASCULAR ACCESS TO ROOM PER ОЛЬГА MATTHEWS FOR A MIDLINE IV. IV TO LT UPPER ARM. PATIENT CHANGED INTO GOWN, ORIENTED TO ROOM AND CALL LIGHT . WILL CONTINUE WITH PLAN OF CARE. SR UP X 2 BED IN LOW POSITION AND CALL LIGHT IN REACH.
[2018-10-13 15:14] VITALS: BP 122/41; BMI 32.2
[2018-10-13 15:15] VITALS: Ht 154.9 cm; Wt 77.3 kg
[2018-10-13 18:27] VITALS: BP 124/60
--- NOTE | 2018-10-13 18:35 | NUR ---
PATIENT SITTING UP IN BED FILLING OUT FORM. PATIENT IS STABLE AND VSS. PATIENT DENIES ANY NEEDS OR PAIN. WILL CONTINUE TO MONTITOR. SR UP X 2 BED IN LOW POSTION AND CALL LIGHT IN REACH.
[2018-10-13 20:25] VITALS: BP 121/42
--- NOTE | 2018-10-13 20:29 | NUR ---
ROUNDS COMPLETED. VSS, AAOX3, NO S/S OF DISTRESS. DRAIN PT'S SANZ BAG. PT PUT OUT 150 CC'S AT THIS TIME. ASSIST PT TO BATHROOM. PT DIASTOLIC BP HAS BEEN RUNNING IN LOWER 40'S. WILL NOTIFY PROVIDER IF THEIR IS A SIGNIFICANT CHANGE. PT DENIES ANY FURTHER NEED AT THIS TIME. WILL CPOC.
--- NOTE | 2018-10-13 21:47 | NUR ---
PT COMPLAIN THAT HER NIGHT MEDS HAVE NOT BEEN GIVEN YET. NOTIFIED DR. CASSIE GRANADOS. DR. MATTHEWS STATES TO RESTART HER HOME MEDS. HOME MEDS RESTARTED, CALLED PHARMACY, AWAITING PHARMACY TO VERIFY.
[2018-10-14 00:06] VITALS: BP 106/53
[2018-10-14 04:34] VITALS: BP 134/46
--- NOTE | 2018-10-14 07:26 | NUR ---
ALERT AND ORIENTED. REAP EVEN AND UNLABORED. PAMELA SCDS ON. NO C/O PAIN. CL IN REACH.
[2018-10-14 08:09] VITALS: BP 119/30
[2018-10-14 09:51] LABS: INR 1.41 (0.85-1.17); PROTIME 16.6 SECONDS (11.6-15.0)
--- NOTE | 2018-10-14 12:46 | NUR ---
SITTING ON BS EATING DINNER. NO DISTRESS NOTED. CL IN REACH.
[2018-10-14 12:59] VITALS: BP 122/46
--- NOTE | 2018-10-14 15:24 | NUR ---
NO CHANGE IN ASSESSMENT. RESP EVEN AND UNLABORED. CL IN REACH.
[2018-10-14 16:37] VITALS: BP 143/57
[2018-10-14 19:33] VITALS: BP 103/40
--- NOTE | 2018-10-14 19:45 | NUR ---
EVENING RROUNDS COMPLETED. VSS, AAOX4, NO S/S OF DISTRESS. PT ON ROOM AIR, SANZ INTACT. ENTERIC PRECAUTION IN PLACE. ASSIST PT WITH CLEANING HER DENTURES. PT VOICE THANKS. PT DENIES ANY FURHTER NEEDS AT THIS TIME. WILL CPOC. CL WITHIN REACH, BED IN LOW, SR UP X2.
--- NOTE | 2018-10-14 19:52 | MORECARE ---
CASE MANAGEMENT DISCHARGE SUMMARY PATIENT: FEDE HANCOCK FARRUKH UNIT: [id number] ADM DATE: 10/13/18 AGE: 87 : 32 SEX: F ROOM/BED: D.1204 AUTHOR: NYDIA DENG PHYSICIAN: REFERRING PHYSICIAN: ROBERTA MATTHEWS MD DATE OF SERVICE: 10/14/18 Discharge Plan Patient Name: FEDE HANCOCK [facility] [facility] 1930 Planned Disposition: Home with Hospice Anticipated Discharge Date: Discharge Date: Expected LOS: Initial Reviewer: [email or web address] Initial Review Date: 10/13/2018 Generated: 10/14/18 8:51 pm Patient Name: FEDE HANCOCK Page 99616 at 1951 All edits/amendments must be made on the electronic document DICTATION DATE: 10/14/181950 AIR PURIFIER SERVICER: GURINDER 10/14/181950 RPT#: [id number] DC DATE: STATUS: ADM IN [facility] [address] [place] [address] END OF REPORT
--- NOTE | 2018-10-14 19:58 | MORECARE ---
CASE MANAGEMENT DISCHARGE SUMMARY PATIENT: FEDE HANCOCK FARRUKH UNIT: [id number] ADM DATE: 10/13/18 AGE: 87 : 32 SEX: F ROOM/BED: D.1204 AUTHOR: SOWMYA,DOC PHYSICIAN: REFERRING PHYSICIAN: ROBERTA MATTHEWS MD DATE OF SERVICE: 10/14/18 Discharge Plan Patient Name: FEDE HANCOCK Facility: [facility]:[place] : 1930 Planned Disposition: Home with Hospice Anticipated Discharge Date: Discharge Date: Expected LOS: Initial Reviewer: [email or web address] Initial Review Date: 10/13/2018 Generated: 10/14/18 8:58 pm Comments DCP- Discharge Planning Updated by [email or web address]: Sita Ricketts on 10/14/18 6:[address] Patient Name: FEDE HANCOCK Admission Status: Elective Accout number: [id number] Admission Date: 10-13-2018 : 1930 Admission Diagnosis: Attending: HEVER MATTHEWS Current LOS: 1 Anticipated DC Date: Planned Disposition: Home with Hospice Primary Insurance: MEDICARE A & B Discharge Planning Comments: CM met with patient to complete initial dc planning assessment. CM educated patient on the CM role and verbal consent given by patient to complete assessment. Patient lives at home alone in assisted living facility ([place]) where she is independent with her care but is actively receiving [facility]. At discharge patient plans to return home with hospice services. Patient states her assisted living facility will pick her up at discharge if it is M-F. Patient denied known discharge needs at this time. CM will continue to follow and will assist as needed with dc plans/needs. Sleep Medicine Physician: Sita Ricketts DCPIA - Discharge Planning Initial Assessment Updated by [email or web address]: Sita Ricketts on 10/14/18 7:52 pm * Is the patient Alert and Oriented? Yes * How many steps to enter\exit or inside your home? * PCP MIGUEL ANGEL * Pharmacy [facility] * Preadmission Environment Hospice * Facility Name [facility] * ADLs Independent * Equipment Oxygen * Other Equipment WALKER * List name and contact numbers for known caregivers / representatives who currently or will assist patient after discharge: SHOSHANA NORTON [facility] [phone] * Verbal permission to speak to the caregivers and representatives has been obtained from the patient. Yes * Community resources currently utilized Hospice Home * Please name any agencies selected above. [facility] * Additional services required to return to the preadmission environment? No * Can the patient safely return to the preadmission environment? Yes * Has this patient been hospitalized within the prior 30 days at any hospital? No Last DP export: 10/14/18 6:52 pm Patient Name: FEDE HANCOCK Page 53685 at 1957 All edits/amendments must be made on the electronic document DICTATION DATE: 10/14/181957 LUMBER MARKER: GURINDER 10/14/181957 RPT#: [id number] DC DATE: STATUS: ADM IN [facility] [address] [place] [address] END OF REPORT
--- NOTE | 2018-10-14 20:40 | NUR ---
PT DBP IS RUNNING LOWER 40'S. SBD 102, 100 RESPECTIVELY. HELD PT'S QUINAPRIL AND APRESOLINE AT THIS TIME. WILL REAASSES AND ADMINISTER.
[2018-10-15] VITALS: BP 145/56
[2018-10-15 03:29] VITALS: BP 156/55
--- NOTE | 2018-10-15 07:00 | NUR ---
PT SUPINE IN BED UPON ENTERING. NO S/S OF DISTRESS NOTED. PT IS ON ROOM AIR, HAVE A MIDLINE TO HER RIGHT AC WITH NS @ 50 ML. PT HAS SANZ IN PLACE FOR RETENTION, IS SCHEDULED TO HAVE A BLADDER PACEMAKER ON October. PT IS ON ENTERIC CONTACT ISOLATION. PT DENIES ANY NEEDS AT THIS TIME. BED IN LOWEST POSITION, BED RAILS X2, CALL LIGHT WITHIN REACH. WILL CTM.
--- NOTE | 2018-10-15 08:39 | NUR ---
ADMINISTERED MORNING MEDICATION AT THIS TIME, ASSESSED VITALS AND HELPED PT TO BATHROOM AND BACK TO BED. DENIES OTHER NEEDS AT THIS TIME. BED IN LOWEST POSITION, BED RAILS X2, CALL LIGHT WITHIN REACH. WILL CTM.
[2018-10-15 09:16] VITALS: BP 191/66
--- NOTE | 2018-10-15 11:16 | NUR ---
ADMINISTERED MEDICATION, NO TROUBLE SWALLOWING. TURNED ON PT HEAT PER REQUEST. DENIES OTHER NEEDS AT THIS TIME. BED IN LOWEST POSITION, BED RAILS X2, CALL LIGHT WITHIN REACH. WILL CTM.
[2018-10-15 13:12] VITALS: BP 136/46
--- NOTE | 2018-10-15 13:17 | NUR ---
PT UP IN BEDSIDE CHAIR EATING LUNCH. VITALS ASSESSED. DENIES ANY NEEDS AT THIS TIME. WILL CTM.
--- NOTE | 2018-10-15 15:27 | NUR ---
HUNG NEW IV BAG OF NS AND ANTIBIOTIC. DENIES ANY DISCOMFORT. DENIES OTHER NEEDS AT THIS TIME. WILL CTM.
--- NOTE | 2018-10-15 19:00 | NUR ---
PT IN BED. EMPTIED SANZ, PUT SOCKS ON, AND MOVED WALKER PER PT REQUEST. PT DENIES FURTHER NEEDS AT THIS TIME.
--- NOTE | 2018-10-15 19:06 | NUR ---
PT RESTING UP RIGHT ON SIDE OF BED AT THIS TIME. REPORT PASSED TO GROUP HOME SUPERVISOR.
[2018-10-15 20:00] VITALS: BP 127/40
[2018-10-16] VITALS: BP 131/47
[2018-10-16 03:43] VITALS: BP 165/60
[2018-10-16 07:16] VITALS: BP 163/48
--- NOTE | 2018-10-16 09:06 | NUR ---
MORNING MEDICATION GIVEN AT THIS TIME. NO TROUBLE SWALLOWING. TURNED DOWN PT HEAT PER REQUEST. DENIES OTHER NEEDS AT THIS TIME.
--- NOTE | 2018-10-16 10:00 | NUR ---
PT SITTING UP RIGHT ON THE SIDE OF THE BED. VITALS ASSESSED. DIASTOLIC BP SLIGHTLY ELEVATED 163/48. ALL VITALS STABLE. PT DENIES ANY NEEDS AT THIS TIME. WILL CTM.
--- NOTE | 2018-10-16 10:21 | MORECARE ---
CASE MANAGEMENT DISCHARGE SUMMARY PATIENT: FEDE HANCOCK FARRUKH UNIT: [id number] ADM DATE: 10/13/18 AGE: 87 : 32 SEX: F ROOM/BED: D.1204 AUTHOR: SOWMYA,DOC PHYSICIAN: REFERRING PHYSICIAN: ROBERTA MATTHEWS MD DATE OF SERVICE: 10/16/18 Discharge Plan Patient Name: FEDE HANCOCK Facility: [facility]:[place] : 1930 Planned Disposition: Home with Hospice Anticipated Discharge Date: Discharge Date: Expected LOS: Initial Reviewer: [email or web address] Initial Review Date: 10/13/2018 Generated: 10/16/18 11:20 am Comments DCP- Discharge Planning Updated by [email or web address]: Sita Ricketts on 10/14/18 6:[address] Patient Name: FEDE HANCOCK Admission Status: Elective Accout number: [id number] Admission Date: 10-13-2018 : 1930 Admission Diagnosis: Attending: HEVER MATTHEWS Current LOS: 1 Anticipated DC Date: Planned Disposition: Home with Hospice Primary Insurance: MEDICARE A & B Discharge Planning Comments: CM met with patient to complete initial dc planning assessment. CM educated patient on the CM role and verbal consent given by patient to complete assessment. Patient lives at home alone in assisted living facility ([place]) where she is independent with her care but is actively receiving [facility]. At discharge patient plans to return home with hospice services. Patient states her assisted living facility will pick her up at discharge if it is M-F. Patient denied known discharge needs at this time. CM will continue to follow and will assist as needed with dc plans/needs. Medical Secretary Teacher: Sita Ricketts DCPIA - Discharge Planning Initial Assessment Updated by [email or web address]: Sita Ricketts on 10/14/18 7:52 pm * Is the patient Alert and Oriented? Yes * How many steps to enter\exit or inside your home? * PCP MIGUEL ANGEL * Pharmacy [facility] * Preadmission Environment Hospice * Facility Name [facility] * ADLs Independent * Equipment Oxygen * Other Equipment WALKER * List name and contact numbers for known caregivers / representatives who currently or will assist patient after discharge: SHOSHANA NORTON [facility] [phone] * Verbal permission to speak to the caregivers and representatives has been obtained from the patient. Yes * Community resources currently utilized Hospice Home * Please name any agencies selected above. [facility] * Additional services required to return to the preadmission environment? No * Can the patient safely return to the preadmission environment? Yes * Has this patient been hospitalized within the prior 30 days at any hospital? No External Providers External Provider: OTHER-OTHER Next Contact Date: Service Request Date: Service Type: Resolution: Reviewer: Comments: Last DP export: 10/14/18 6:58 pm Patient Name: FEDE HANCOCK Page [id number] at 1021 All edits/amendments must be made on the electronic document DICTATION DATE: 10/16/18 1020 LEAD PROJECT ENGINEER: GURINDER 10/16/18 1020 RPT#: [id number] DC DATE: STATUS: ADM IN [facility] [address] [place] [address] END OF REPORT
--- NOTE | 2018-10-16 11:31 | NUR ---
DR. MATTHEWS LEFT PRESCRIPTION FOR IV HOME MEDICATIONS.
--- NOTE | 2018-10-16 11:52 | NUR ---
ADMINISTERED MEDICATION, NO TROUBLE SWALLOWING. REQUEST LEG SANZ BAG UPON DEPARTURE. WILL PROVIDE WHEN PT IS DISCHARGED. DENIES ANY OTHER NEEDS AT THIS TIME. WILL CTM.
--- NOTE | 2018-10-16 12:28 | MORECARE ---
CASE MANAGEMENT DISCHARGE SUMMARY PATIENT: FEDE HANCOCK FARRUKH UNIT: [id number] ADM DATE: 10/13/18 AGE: 87 : 32 SEX: F ROOM/BED: D.1204 AUTHOR: SOWMYA,DOC PHYSICIAN: REFERRING PHYSICIAN: ROBERTA MATTHEWS MD DATE OF SERVICE: 10/16/18 Discharge Plan Patient Name: FEDE HANCOCK Facility: [facility]:[place] : 1930 Planned Disposition: Home with Hospice Anticipated Discharge Date: Discharge Date: Expected LOS: Initial Reviewer: [email or web address] Initial Review Date: 10/13/2018 Generated: 10/16/18 1:28 pm Comments DCP- Discharge Planning Updated by [email or web address]: Sita Ricketts on 10/14/18 6:[address] Patient Name: FEDE HANCOCK Admission Status: Elective Accout number: [id number] Admission Date: 10-13-2018 : 1930 Admission Diagnosis: Attending: HEVER MATTHEWS Current LOS: 1 Anticipated DC Date: Planned Disposition: Home with Hospice Primary Insurance: MEDICARE A & B Discharge Planning Comments: CM met with patient to complete initial dc planning assessment. CM educated patient on the CM role and verbal consent given by patient to complete assessment. Patient lives at home alone in assisted living facility ([facility]) where she is independent with her care but is actively receiving [facility]. At discharge patient plans to return home with hospice services. Patient states her assisted living facility will pick her up at discharge if it is M-F. Patient denied known discharge needs at this time. CM will continue to follow and will assist as needed with dc plans/needs. Tile Trimmer: Sita Ricketts DCPIA - Discharge Planning Initial Assessment Updated by [email or web address]: Sita Ricketts on 10/14/18 7:52 pm * Is the patient Alert and Oriented? Yes * How many steps to enter\exit or inside your home? * PCP [facility]GEL * Pharmacy [facility] * Preadmission Environment [facility]osp[facility] * [facility] * ADLs Independent * Equipment Oxygen * Other Equipment WALKER * List name and contact numbers for known caregivers / representatives who currently or will assist patient after discharge: SHOSHANA NORTON [facility] [phone] * Verbal permission to speak to the caregivers and representatives has been obtained from the patient. Yes * Community resources currently utilized [facility] * Please name any agencies selected above. [facility] * Additional services required to return to the preadmission environment? No * Can the patient safely return to the preadmission environment? Yes * Has this patient been hospitalized within the prior 30 days at any hospital? No External Providers External Provider: OTHER-OTHER Next Contact Date: Service Request Date: Service Type: Resolution: Reviewer: Comments: External Provider: OTHER-OTHER Next Contact Date: Service Request Date: Service Type: Resolution: Reviewer: Comments: Last DP export: 10/16/18 9:21 am Patient Name: FEDE HANCOCK Page [phone] at 1228 All edits/amendments must be made on the electronic document DICTATION DATE: 10/16/181226 POT FIRER: GURINDER 10/16/187 RPT#: [id number] [place] DATE: STATUS: ADM IN [facility] [address] [place] [address] END OF REPORT
--- NOTE | 2018-10-16 13:57 | NUR ---
HUNG IV MEDICATION AND NS. ADJUSTED ROOM TEMP AND PLUGGED PT PHONE IN PER PT REQUEST. DENIES OTHER NEEDS AT THIS TIME. WILL CTM.
--- NOTE | 2018-10-16 17:07 | NUR ---
PT SIGNED DISCHARGE PAPERS, EATING DINNER. REQUESTED LEG BAG BE PLACED AFTER MEAL.
[2018-10-16 17:41] VITALS: BP 203/74
--- NOTE | 2018-10-16 19:18 | NUR ---
PT DC PER DR MATTHEWS BUT CONCERNED WITH BP 203/74. DR MATTHEWS PAGED. PT INSTRUCTED TO FOLLOW UP WITH PCP UPON RETURN TO [facility]. PT IS REFUSING DC AND IS ATTEMPTING TO TAKE HOME MEDS BROUGHT BY [facility].
--- NOTE | 2018-10-16 19:56 | NUR ---
pt left floor at this time via wheel chair accompanied by myself and another nurse. cab awaiting pt at the er entrance.
--- NOTE | 2018-10-16 22:17 | MORECARE ---
CASE MANAGEMENT DISCHARGE SUMMARY PATIENT: FEDE HANCOCK FARRUKH UNIT: [id number] ADM DATE: 10/13/18 AGE: 87 : 32 SEX: F ROOM/BED: D.1204 AUTHOR: NYDIA DENG PHYSICIAN: REFERRING PHYSICIAN: ROBERTA MATTHEWS MD DATE OF SERVICE: 10/16/18 Discharge Plan Patient Name: FEDE HANCOCK Facility: [facility]:[place] : 1930 Planned Disposition: Home with Hospice Anticipated Discharge Date: Discharge Date: 10/16/2018 Expected LOS: Initial Reviewer: [email or web address] Initial Review Date: 10/13/2018 Generated: 10/16/18 11:17 pm Comments DCP- Discharge Planning Updated by [email or web address]: Sita Ricketts on 10/16/18 9:[address] Late Entry 10/16/18 @ 0900 CM notified of need for home IV antibiotics. CM contacted [place] and [facility] to get hubbard quote for IV meds and faxed over records needed. CM waiting on hubbard quotes [facility] quoted hubbard [phone] or payment plan 82.00 monthly x 3months. CM called [facility] back to get hubbard they stated that their wrapper and preserver was down and not able to check pricing. CM spoke with patient to see if she would be able to pay for the medication she agreed to the payment plan of 82.00 monthly x 3 months. CM spoke with [facility] and they have agreed to administer the medication daily for 10 days. CM notified both [facility] and [facility] that patient is discharging today. [facility]ospice will be out Friday10/17/18 and [facility] will deliver today. D/C IMM signed 10/16/18 @1620. CM will continue to follow and assist as needed with discharge planning / needs. DCP- Discharge Planning Updated by [email or web address]: Sita Ricketts on 10/14/18 6:[address] Patient Name: FEDE HANCOCK Admission Status: Elective Accout number: [id number] Admission Date: 10-13-2018 : 1930 Admission Diagnosis: Attending: HEVER MATTHEWS Current LOS: 1 Anticipated DC Date: Planned Disposition: Home with Hospice Primary Insurance: MEDICARE A & B Discharge Planning Comments: CM met with patient to complete initial dc planning assessment. CM educated patient on the CM role and verbal consent given by patient to complete assessment. Patient lives at home alone in assisted living facility ([facility]) where she is independent with her care but is actively receiving [facility]. At discharge patient plans to return home with hospice services. Patient states her assisted living facility will pick her up at discharge if it is M-F. Patient denied known discharge needs at this time. CM will continue to follow and will assist as needed with dc plans/needs. Lining Cleaner: Sita Ricketts DCPIA - Discharge Planning Initial Assessment Updated by [email or web address]: Sita Ricketts on 10/14/18 7:52 pm * Is the patient Alert and Oriented? Yes * How many steps to enter\exit or inside your home? * PCP MIGUEL ANGEL * Pharmacy [facility] * Preadmission Environment [facility] * Facility [facility] * ADLs Independent * Equipment Oxygen * Other Equipment WALKER * List name and contact numbers for known caregivers / representatives who currently or will assist patient after discharge: SHOSHANA NORTON [facility] [phone] * Verbal permission to speak to the caregivers and representatives has been obtained from the patient. Yes * Community resources currently utilized [facility] * Please name any agencies selected above. [facility] * Additional services required to return to the preadmission environment? No * Can the patient safely return to the preadmission environment? Yes * Has this patient been hospitalized within the prior 30 days at any hospital? No Coverage Notice Reviewer: [id number] Chetan Ricketts Notice Issued Date-Time: 10/16/2018 16:20 Notice Type: IM Discharge Notice Notice Delivered To: Patient Relationship to Patient: Self Svp Programmatic Tv Name: Delivery Method: HAND - Hand Delivered Alexandra Days: Prior Verbal Notification: Recipient Understood Notice: Yes Recipient Signature: Yes Med Rec Note Co-signed by Attending: Coverage Notice Comment: Reviewer: [email or web address] Chetan Ricketts Notice Issued Date-Time: 10/16/2018 16:20 Notice Type: Patient Choice Letter Notice Delivered To: Patient Relationship to Patient: Self Svp Programmatic Tv Name: Delivery Method: - Alexandra Days: Prior Verbal Notification: Recipient Understood Notice: Recipient Signature: Med Rec Note Co-signed by Attending: Coverage Notice Comment: Last DP export: 10/16/18 11:28 am Patient Name: FEDE HANCOCK Page 82630 at 2217 All edits/amendments must be made on the electronic document DICTATION DATE: 10/16/182216 GAS WELDER: GURINDER 10/16/182216 RPT#: [id number] DC DATE:10/16/18 STATUS: DIS IN [facility] [address] [place] [address] END OF REPORT
--- NOTE | 2018-10-16 22:24 | MORECARE ---
CASE MANAGEMENT DISCHARGE SUMMARY PATIENT: FEDE HANCOCK FARRUKH UNIT: [id number] ADM DATE: 10/13/18 AGE: 87 : 32 SEX: F ROOM/BED: D.1204 AUTHOR: NYDIA DENG PHYSICIAN: REFERRING PHYSICIAN: ROBERTA MATTHEWS MD DATE OF SERVICE: 10/16/18 Discharge Plan Patient Name: FEDE HANCOCK Facility: [facility]:[place] : 1930 Planned Disposition: Home with Hospice Anticipated Discharge Date: Discharge Date: 10/16/2018 Expected LOS: Initial Reviewer: [email or web address] Initial Review Date: 10/13/2018 Generated: 10/16/18 11:24 pm Comments DCP- Discharge Planning Updated by [email or web address]: Sita Ricketts on 10/16/18 9:[address] Late Entry 10/16/18 @ 0900 CM notified of need for home IV antibiotics. CM contacted [place] and [facility] to get hubbard quote for IV meds and faxed over records needed. CM waiting on hubbard quotes [place] quoted hubbard 244.30 or payment plan 82.00 monthly x 3months. CM called [place] back to get hubbard they stated that their cafeteria food server was down and not able to check pricing. CM spoke with patient to see if she would be able to pay for the medication she agreed to the payment plan of 82.00 monthly x 3 months. CM spoke with [facility] and they have agreed to administer the medication daily for 10 days. CM notified both [facility] and [facility] that patient is discharging today. Hospice will be out Friday10/17/18 and [facility] will deliver today. D/C IMM signed 10/16/18 @1620. CM will continue to follow and assist as needed with discharge planning / needs. DCP- Discharge Planning Updated by [email or web address]: Sita Ricketts on 10/14/18 6:[address] Patient Name: FEDE HANCOCK Admission Status: Elective Accout number: [id number] Admission Date: 10-13-2018 : 1930 Admission Diagnosis: Attending: HEVER MATTHEWS Current LOS: 1 Anticipated DC Date: Planned Disposition: Home with Hospice Primary Insurance: MEDICARE A & B Discharge Planning Comments: CM met with patient to complete initial dc planning assessment. CM educated patient on the CM role and verbal consent given by patient to complete assessment. Patient lives at home alone in assisted living facility ([facility]) where she is independent with her care but is actively receiving [facility]. At discharge patient plans to return home with hospice services. Patient states her assisted living facility will pick her up at discharge if it is M-F. Patient denied known discharge needs at this time. CM will continue to follow and will assist as needed with dc plans/needs. Tie Knitter Helper: Sita Ricketts DCPIA - Discharge Planning Initial Assessment Updated by [email or web address]: Sita Ricketts on 10/14/18 7:52 pm * Is the patient Alert and Oriented? Yes * How many steps to enter\exit or inside your home? * PCP [facility]UEL ANGEL * Pharmacy [facility] * Preadmission Environment [facility]osp[facility] * Facility [facility] * ADLs Independent * Equipment Oxygen * Other Equipment WALKER * List name and contact numbers for known caregivers / representatives who currently or will assist patient after discharge: SHOSHANA NORTON [facility] [phone] * Verbal permission to speak to the caregivers and representatives has been obtained from the patient. Yes * Community resources currently utilized [facility] * Please name any agencies selected above. [facility] * Additional services required to return to the preadmission environment? No * Can the patient safely return to the preadmission environment? Yes * Has this patient been hospitalized within the prior 30 days at any hospital? No Coverage Notice Reviewer: [id number] Chetan Ricketts Notice Issued Date-Time: 10/16/2018 16:20 Notice Type: IM Discharge Notice Notice Delivered To: Patient Relationship to Patient: Self Hat Renovator Name: Delivery Method: HAND - Hand Delivered Alexandra Days: Prior Verbal Notification: Recipient Understood Notice: Yes Recipient Signature: Yes Med Rec Note Co-signed by Attending: Coverage Notice Comment: Reviewer: [id number] Chetan Ricketts Notice Issued Date-Time: 10/16/2018 16:20 Notice Type: Patient Choice Letter Notice Delivered To: Patient Relationship to Patient: Self Hat Renovator Name: Delivery Method: - Alexandra Days: Prior Verbal Notification: Recipient Understood Notice: Recipient Signature: Med Rec Note Co-signed by Attending: Coverage Notice Comment: Last DP export: 10/16/18 9:17 pm Patient Name: FEDE HANCOCK Page [phone] at 2224 All edits/amendments must be made on the electronic document DICTATION DATE: 10/16/182223 ON CALL PHARMACY TECHNICIAN: GURINDER 10/16/182223 RPT#: [id number] DC DATE:10/16/18 STATUS: DIS IN [facility] [address] [place] [address] END OF REPORT
== END 2018-10-16 19:57 | disposition home health service (06) | DRG 700 ==
LOC: D.OPS 13:16 → D.M3 13:18
PROVIDERS: ADMIT Urology; ATTEND Urology
PROC: 05HC33Z Insertion of Infusion Device into Left Basilic Vein, Percutaneous Approach (ICD-10-PCS; principal; 2018-10-13)
PROC: B54NZZA Ultrasonography of Left Upper Extremity Veins, Guidance (ICD-10-PCS; 2018-10-13)
DX: T83.511A Infection and inflammatory reaction due to indwelling urethral catheter, initial encounter (principal); N39.0 Urinary tract infection, site not specified; B96.5 Pseudomonas (aeruginosa) (mallei) (pseudomallei) as the cause of diseases classified elsewhere; I10 Essential (primary) hypertension; K21.9 Gastro-esophageal reflux disease without esophagitis; Y84.6 Urinary catheterization as the cause of abnormal reaction of the patient, or of later complication, without mention of misadventure at the time of the procedure

== ENCOUNTER 2018-10-28 09:21 | Emergency (ER) | payer MEDICARE, BC ==
[~2018-10-28] VITALS: Ht 154.9 cm; Wt 77.1 kg
[~2018-10-28 09:21] MED LIST changes: -DURAGESIC1 PATCH .7; +DURAGESIC1 PATCH .7 TOPICAL
[2018-10-28 09:25] VITALS: Ht 154.9 cm; Wt 77.1 kg
[2018-10-28 10:39] LABS: APPEARANCE HAZY (CLEAR); BACTERIA FEW /hpf (NONE SEEN); BILIRUBIN NEGATIVE (NEGATIVE); COLOR GREEN (YELLOW); EPITHELIAL CELLS OCC /hpf (0-5); GLUCOSE NEGATIVE (NEGATIVE); KETONE NEGATIVE (NEGATIVE); MUCUS <1+ /lpf (NONE SEEN); NITRITE NEGATIVE (NEGATIVE); PROTEIN NEGATIVE (NEGATIVE); RED CELLS - URINE 0-5 /hpf (0-5); UROBILINOGEN NORMAL (NORMAL)
[2018-10-28 11:59] LABS: BASOPHILS 0.4 % (0-2); EOSINOPHILS 2.5 % (0-7); HEMATOCRIT 35.6 % (36.0-48.0); HEMOGLOBIN 11.6 g/dL (12-16); IMMATURE GRANULOCYTES 0.1 % (0-5); LYMPHOCYTES 39.3 % (15-50); MCH 29.4 pg (26.0-34.0); MCHC 32.6 g/dL (31.0-37.0); MCV 90.1 fL (80.0-100.0); MONOCYTES 12.7 % (2-11); PLATELET COUNT 199 10x3/uL (130-400); RBC 3.95 10x6/uL (4.00-5.40); RDW 13.5 % (11.5-14.5); WBC 7.3 10x3/uL (4.8-10.8)
[2018-10-28 12:08] LABS: ALBUMIN 3.6 g/dL (3.4-5.0); ANION GAP 7.4 mmol/L (8-16); BILIRUBIN - TOTAL 0.63 mg/dL (0.2-1.3); CALCIUM 9.4 mg/dL (8.5-10.1); CARBON DIOXIDE 33.4 mmol/L (21.0-32.0); CREATININE - SERUM 0.9 mg/dL (0.6-1.3); POTASSIUM - SERUM 3.8 mmol/L (3.5-5.1); PROTEIN - SERUM 7.3 g/dL (6.4-8.2)
[2018-10-28] MEDS ORDERED: MACROBID100 MG PO (12:35)
[2018-10-28] MEDS ORDERED: KEFLEX500 MG PO (12:35)
[2018-10-28 13:10] VITALS: BP 193/77
== END 2018-10-28 13:10 | disposition home or self-care (01) ==
LOC: D.ER 09:21
PROVIDERS: Family Medicine
DX: T83.018A Breakdown (mechanical) of other urinary catheter, initial encounter (principal)

== ENCOUNTER → 2018-11-12 17:27 | Outpatient (CLI) | payer MEDICARE, BC ==
[2018-10-28 09:25] VITALS: BMI 32.2
[~2018-11-12 17:27] MED LIST changes: +AUGMENTIN 875-11 TAB PO; +CYSTEX TABLET1 EACH PO; +FUROSEMIDE20 MG PO; +K-TAB10 MEQ PO; +KEFLEX500 MG PO; +MACROBID100 MG PO; +PROTONIX40 MG; +PROTONIX40 MG PO
== END | disposition home or self-care (01) ==
LOC: D.LABREF 17:27
PROVIDERS: ATTEND Urology
DX: N39.0 Urinary tract infection, site not specified (principal)

== ENCOUNTER 2018-11-18 15:55 | Inpatient (IN) | payer MEDICARE, BC ==
[~2018-11-18] VITALS: Ht 152.4 cm; Wt 77.1 kg
[~2018-11-18 15:55] MED LIST changes: -AUGMENTIN 875-11 TAB PO; -CYSTEX TABLET1 EACH PO; -FUROSEMIDE20 MG PO; -K-TAB10 MEQ PO; -PROTONIX40 MG; -PROTONIX40 MG PO
[2018-11-18 17:04] LABS: BASOPHILS 0.6 % (0-2); EOSINOPHILS 2.5 % (0-7); HEMATOCRIT 35.1 % (36.0-48.0); HEMOGLOBIN 11.8 g/dL (12-16); IMMATURE GRANULOCYTES 0.2 % (0-5); LYMPHOCYTES 46.5 % (15-50); MCH 29.5 pg (26.0-34.0); MCHC 33.6 g/dL (31.0-37.0); MCV 87.8 fL (80.0-100.0); MEAN PLATELET VOLUME 9.6 fL (7.4-10.4); MONOCYTES 12.8 % (2-11); NEUTROPHILS 37.4 % (40-80); PLATELET COUNT 188 10x3/uL (130-400); RDW 13.4 % (11.5-14.5); WBC 6.5 10x3/uL (4.8-10.8)
[2018-11-18 17:10] LABS: APPEARANCE CLEAR (CLEAR); BILIRUBIN NEGATIVE (NEGATIVE); COLOR MINT GREEN (YELLOW); GLUCOSE NEGATIVE (NEGATIVE); KETONE NEGATIVE (NEGATIVE); NITRITE NEGATIVE (NEGATIVE); PROTEIN NEGATIVE (NEGATIVE); SPECIFIC GRAVITY 1.015 (1.005-1.020); UROBILINOGEN NORMAL (NORMAL)
[2018-11-18 17:11] LABS: BACTERIA FEW /hpf (NONE SEEN); EPITHELIAL CELLS 0-5 /hpf (0-5); MUCUS <1+ /lpf (NONE SEEN); RED CELLS - URINE 0-5 /hpf (0-5); WHITE CELLS - URINE 0-5 /hpf (0-5)
--- NOTE | 2018-11-18 19:49 | NUR ---
PT RESTING IN BED. NO S/S OF ACUTE DISTRESS. CL IN PLACE.
--- NOTE | 2018-11-18 20:28 | NUR ---
RECEIVED TO ROOM.ALERT,ORIENTED NO COMPLAITNS VOICED.SL TO RFA WITHOUT REDNESS OR EDEMA NOTED. ORIENTED TO ROOM. CL IN REACH
[2018-11-18 21:53] VITALS: BP 155/66
[2018-11-19 00:25] VITALS: BP 116/77
--- NOTE | 2018-11-19 03:44 | NUR ---
I have reviewed this patient and I concur with the Shift Assessment completed by the Licensed Practical Nurse today this shift.
[2018-11-19 05:16] VITALS: BP 142/57
[2018-11-19 06:03] LABS: BASOPHILS 0.7 % (0-2); EOSINOPHILS 2.8 % (0-7); HEMATOCRIT 35.2 % (36.0-48.0); HEMOGLOBIN 11.6 g/dL (12-16); IMMATURE GRANULOCYTES 0.2 % (0-5); LYMPHOCYTES 47.4 % (15-50); MCH 29.1 pg (26.0-34.0); MCV 88.2 fL (80.0-100.0); MEAN PLATELET VOLUME 10.5 fL (7.4-10.4); NEUTROPHILS 33.9 % (40-80); PLATELET COUNT 190 10x3/uL (130-400); RBC 3.99 10x6/uL (4.00-5.40); RDW 13.3 % (11.5-14.5); WBC 6.1 10x3/uL (4.8-10.8)
[2018-11-19 06:10] LABS: INR 2.55 (0.85-1.17); PROTIME 26.7 SECONDS (11.6-15.0)
[2018-11-19 06:11] LABS: APTT 47.1 SECONDS (22.8-39.4)
[2018-11-19 06:37] LABS: ANION GAP 10.1 mmol/L (8-16); CALCIUM 8.7 mg/dL (8.5-10.1); CARBON DIOXIDE 29.9 mmol/L (21.0-32.0); MAGNESIUM - SERUM 1.8 mg/dL (1.8-2.4); PHOSPHOROUS 3.9 mg/dL (2.5-4.9)
--- NOTE | 2018-11-19 07:06 | NUR ---
RESTING QUEITLY WITH NO DISTRESS NOTED. CL IN REACH
[2018-11-19 08:47] VITALS: BP 170/61
--- NOTE | 2018-11-19 09:11 | NUR ---
PT RESTING IN BED. EATING BREAKSFAST. NO S/S OF ACUTE DISTRESS. CL IN PLACE.
[2018-11-19] MEDS ORDERED: FUROSEMIDE20 MG PO (11:21)
[2018-11-19] MEDS ORDERED: K-TAB10 MEQ PO (11:22)
[2018-11-19] MEDS ORDERED: PROTONIX40 MG (11:23)
--- NOTE | 2018-11-19 11:32 | NUR ---
PER PT REQUEST CHANGED APRESOLINE ORDER TO "MIDDAY AND COREG TO HS." CHANGED TIMES IN COMPUTER PER PT REQUEST
[2018-11-19 12:52] VITALS: BP 187/64
[2018-11-19 13:13] VITALS: Ht 152.4 cm; Wt 77.1 kg
[2018-11-19 17:49] VITALS: BP 123/62
--- NOTE | 2018-11-19 18:06 | NUR ---
PT SITTING UP ON SIDE OF BED FINISHING DINNER. NO S/S OF ACUTE DISTRESS. CL IN PLACE.
--- NOTE | 2018-11-19 20:30 | NUR ---
AWAKE,ALERT.NO COMPLAINTS VOICED. RESP EVEN AND UNALBORED. B/P 123/60. REFUSED PM MEDS. IV INFUSING TO RFA WITHOUT REDNESS OR EDEMA NOTED. CL IN REACH
[2018-11-19 21:26] VITALS: BP 120/63
[2018-11-20 00:35] VITALS: BP 158/63
--- NOTE | 2018-11-20 03:45 | NUR ---
I have reviewed this patient and I concur with the Shift Assessment completed by the Licensed Practical Nurse today this shift.
[2018-11-20 05:07] VITALS: BP 142/54
[2018-11-20 06:10] LABS: BASOPHILS 0.6 % (0-2); EOSINOPHILS 2.6 % (0-7); HEMATOCRIT 36.1 % (36.0-48.0); HEMOGLOBIN 11.8 g/dL (12-16); IMMATURE GRANULOCYTES 0.3 % (0-5); LYMPHOCYTES 46.9 % (15-50); MCH 29.1 pg (26.0-34.0); MCHC 32.7 g/dL (31.0-37.0); MCV 88.9 fL (80.0-100.0); MEAN PLATELET VOLUME 10.3 fL (7.4-10.4); MONOCYTES 13.4 % (2-11); NEUTROPHILS 36.2 % (40-80); PLATELET COUNT 178 10x3/uL (130-400); RBC 4.06 10x6/uL (4.00-5.40); RDW 13.6 % (11.5-14.5); WBC 7.2 10x3/uL (4.8-10.8)
[2018-11-20 06:31] LABS: ANION GAP 10.1 mmol/L (8-16); CARBON DIOXIDE 30.2 mmol/L (21.0-32.0); CREATININE - SERUM 1.2 mg/dL (0.6-1.3); MAGNESIUM - SERUM 1.8 mg/dL (1.8-2.4); PHOSPHOROUS 4.5 mg/dL (2.5-4.9); POTASSIUM - SERUM 4.3 mmol/L (3.5-5.1)
--- NOTE | 2018-11-20 07:45 | NUR ---
PATIENT AWAKE WATCHING TV. STATES SHE IS READY FOR DISCHARGE. IV TUBING REPOSITIONED. CL IN REACH. NO NEEDS AT THIS TIME
[2018-11-20 08:30] VITALS: BP 165/63
[2018-11-20 12:56] VITALS: BP 178/70
--- NOTE | 2018-11-20 14:59 | MORECARE ---
CASE MANAGEMENT DISCHARGE SUMMARY PATIENT: FEDE HANCOCK FARRUKH UNIT: [id number] ADM DATE: 11/18/18 AGE: 87 : 32 SEX: F ROOM/BED: D.2207 AUTHOR: SOWMYA,DOC PHYSICIAN: REFERRING PHYSICIAN: HARRY YOU MD DATE OF SERVICE: 11/20/18 Discharge Plan Patient Name: FEDE HANCOCK Facility: [facility]:[place] : 1930 Planned Disposition: Assisted Living Anticipated Discharge Date: Discharge Date: Expected LOS: Initial Reviewer: [email or web address] Initial Review Date: 11/18/2018 Generated: 11/20/18 3:59 pm Comments DCP- Discharge Planning Updated by [email or web address]: Marisabel Driver on 11/20/18 1:[address] Patient Name: FEDE HANCOCK Admission Status: ER Accout number: [id number] Admission Date: 11-18-2018 : 1930 Admission Diagnosis: Attending: HARRY YOU Current LOS: 2 Anticipated DC Date: Planned Disposition: Assisted Living Primary Insurance: MEDICARE A & B Discharge Planning Comments: CM met with patient to complete initial dc planning assessment. CM educated patient on the CM role and verbal consent given by patient to complete assessment. Patient lives at [facility] where she [facility]. At discharge patient plans to return there and feels this is a safe discharge. CM discussed availability of home health, rehab services, and medical equipment. Patient stated that she has all the DME that she needs. There is a walker at her bedside. Someone with [facility] will be picking her up at discharge. [facility] was in the patient's room this afternoon. Patient denied known discharge needs at this time. CM will continue to follow and will assist as needed with dc plans/needs. Stainless Steel Finisher: Marisabel Driver DCPIA - Discharge Planning Initial Assessment Updated by [id number]: Marisabel Driver on 11/20/18 2:53 pm * Is the patient Alert and Oriented? Yes * How many steps to enter\exit or inside your home? * PCP [facility] * Pharmacy [facility] * Preadmission Environment Assisted Living * Facility Name [facility] * ADLs Partial Dependent * Partial ADLs (Assistance needed) Medication Management * Equipment Oxygen Shower Chair Walker * List name and contact numbers for known caregivers / representatives who currently or will assist patient after discharge: GUERRERO KLINE [phone] * Verbal permission to speak to the caregivers and representatives has been obtained from the patient. N/A * Community resources currently utilized [facility] * Please name any agencies selected above. [facility] * Additional services required to return to the preadmission environment? No * Can the patient safely return to the preadmission environment? Yes * Has this patient been hospitalized within the prior 30 days at any hospital? No Patient Name: FEDE HANCOCK Page 42201 at 1454 All edits/amendments must be made on the electronic document DICTATION DATE: 11/20/181458 ELECTRICAL CAD DESIGNER: GURINDER 11/20/181458 RPT#: [id number] DC DATE: STATUS: ADM IN [facility] [address] [place] [address] END OF REPORT
[2018-11-20] MEDS ORDERED: CYSTEX TABLET1 EACH PO (16:34)
--- NOTE | 2018-11-20 16:53 | NUR ---
PATIENT STOPPED ME FROM GIVING HER FULL DISCHARGE INSTRUCTIONS VERBALLY. I TOLD HER ABOUT HER APPOINTMENT WITH DR MATTHEWS. IV THERAPY REMOVED TIP INTACT. PATIENT RIDE IS ON ROUTE VERIFIED BY ME. WILL NOTIFY ME WHEN SHE LEAVES.
--- NOTE | 2018-11-24 12:05 | MORECARE ---
CASE MANAGEMENT DISCHARGE SUMMARY PATIENT: FEDE HANCOCK FARRUKH UNIT: [id number] ADM DATE: 11/18/18 AGE: 88 : 32 SEX: F ROOM/BED: D.2201 AUTHOR: SOWMYA,DOC PHYSICIAN: REFERRING PHYSICIAN: HARRY YOU MD DATE OF SERVICE: 11/24/18 Discharge Plan Patient Name: FEDE HANCOCK Facility: [facility]:[place] : 1930 Planned Disposition: Assisted Living Anticipated Discharge Date: Discharge Date: 11/20/2018 Expected LOS: 0 Initial Reviewer: [email or web address] Initial Review Date: 11/18/2018 Generated: 11/24/18 1:05 pm Comments DCP- Discharge Planning Updated by [id number]: Marisabel Driver on 11/20/18 1:[address] Patient Name: FEDE HANCOCK Admission Status: ER Accout number: [id number] Admission Date: 11-18-2018 : 1930 Admission Diagnosis: Attending: HARRY YOU Current LOS: 2 Anticipated DC Date: Planned Disposition: Assisted Living Primary Insurance: MEDICARE A & B Discharge Planning Comments: CM met with patient to complete initial dc planning assessment. CM educated patient on the CM role and verbal consent given by patient to complete assessment. Patient lives at [facility] where she has [facility]. At discharge patient plans to return there and feels this is a safe discharge. CM discussed availability of home health, rehab services, and medical equipment. Patient stated that she has all the DME that she needs. There is a walker at her bedside. Someone with [facility] will be picking her up at discharge. [facility] was in the patient's room this afternoon. Patient denied known discharge needs at this time. CM will continue to follow and will assist as needed with dc plans/needs. Hardware Sales Assistant: Marisabel Driver DCPIA - Discharge Planning Initial Assessment Updated by [id number]: Marisabel Driver on 11/20/18 2:53 pm * Is the patient Alert and Oriented? Yes * How many steps to enter\exit or inside your home? * PCP [facility] * Pharmacy [facility] * Preadmission Environment Assisted Living * Facility Name [facility] * ADLs Partial Dependent * Partial ADLs (Assistance needed) Medication Management * Equipment Oxygen Shower Chair Walker * List name and contact numbers for known caregivers / representatives who currently or will assist patient after discharge: GUERRERO KLINE [phone] * Verbal permission to speak to the caregivers and representatives has been obtained from the patient. N/A * Community resources currently utilized [facility] * Please name any agencies selected above. [facility] * Additional services required to return to the preadmission environment? No * Can the patient safely return to the preadmission environment? Yes * Has this patient been hospitalized within the prior 30 days at any hospital? No Last DP export: 11/20/18 1:59 p Patient Name: FEDE HANCOCK Page 40715 at 1205 All edits/amendments must be made on the electronic document DICTATION DATE: 11/24/18 1205 DRAWING PRESS OPERATOR: GURINDER 11/24/18 1205 RPT#: [id number] DC DATE:11/20/18 STATUS: DIS IN [facility] [address] [place] [address] END OF REPORT
== END 2018-11-20 17:10 | disposition home or self-care (01) | DRG 690 ==
LOC: D.ER 15:55 → D.MS 17:31
PROVIDERS: Emergency Medicine; ADMIT Internal Medicine Nephrology; ATTEND Internal Medicine Nephrology
DX: N39.0 Urinary tract infection, site not specified (principal); I10 Essential (primary) hypertension; D64.9 Anemia, unspecified; K59.09 Other constipation; Z95.0 Presence of cardiac pacemaker; E78.5 Hyperlipidemia, unspecified; I25.10 Atherosclerotic heart disease of native coronary artery without angina pectoris; K21.9 Gastro-esophageal reflux disease without esophagitis; M19.90 Unspecified osteoarthritis, unspecified site; E03.9 Hypothyroidism, unspecified; F32.9 Major depressive disorder, single episode, unspecified

== ENCOUNTER → 2018-11-25 20:02 | Outpatient (CLI) | payer MEDICARE, BC ==
[2018-11-19 13:13] VITALS: BMI 33.2
[~2018-11-25 20:02] MED LIST changes: +AUGMENTIN 875-11 TAB PO; +CYSTEX TABLET1 EACH PO; +FUROSEMIDE20 MG PO; +K-TAB10 MEQ PO; +PROTONIX40 MG; +PROTONIX40 MG PO
== END | disposition home or self-care (01) ==
LOC: D.LABREF 20:02
PROVIDERS: ATTEND Urology
DX: R30.0 Dysuria (principal); N39.0 Urinary tract infection, site not specified

== ENCOUNTER 2018-12-04 13:43 | Inpatient (IN) | payer MEDICARE, BC ==
[~2018-12-04] VITALS: Ht 152.4 cm; Wt 77.1 kg
[~2018-12-04 13:43] MED LIST changes: -AUGMENTIN 875-11 TAB PO; -PROTONIX40 MG PO
[2018-12-04 14:51] LABS: BASOPHILS 0.4 % (0-2); EOSINOPHILS 0.9 % (0-7); HEMOGLOBIN 12.3 g/dL (12-16); IMMATURE GRANULOCYTES 0.3 % (0-5); LYMPHOCYTES 42.4 % (15-50); MCH 29.4 pg (26.0-34.0); MCHC 32.4 g/dL (31.0-37.0); MCV 90.7 fL (80.0-100.0); MEAN PLATELET VOLUME 9.7 fL (7.4-10.4); MONOCYTES 12.5 % (2-11); NEUTROPHILS 43.5 % (40-80); PLATELET COUNT 210 10x3/uL (130-400); RBC 4.19 10x6/uL (4.00-5.40); RDW 13.7 % (11.5-14.5); WBC 7.9 10x3/uL (4.8-10.8)
[2018-12-04 15:08] LABS: ALBUMIN 3.6 g/dL (3.4-5.0); ALKALINE PHOSPHATASE 60 U/L (46-116); ALT (SGPT) 20 U/L (10-68); CALC OSMOLALITY 280 mosm/kg (275-300); CALCIUM 9.2 mg/dL (8.5-10.1); CARBON DIOXIDE 33.4 mmol/L (21.0-32.0); CHLORIDE - SERUM 100 mmol/L (98-107); CREATININE - SERUM 0.9 mg/dL (0.6-1.3); GLUCOSE 110 mg/dL (74-106); POTASSIUM - SERUM 4.5 mmol/L (3.5-5.1); PROTEIN - SERUM 6.8 g/dL (6.4-8.2); SODIUM 139 mmol/L (136-145); UREA NITROGEN 18 mg/dL (7-18); eGFR NON AFRICAN AMERICAN 63 mL/min (90-120)
[2018-12-04 15:12] LABS: AMYLASE - SERUM 23 U/L (25-115); LIPASE 114 U/L (73-393); TROPONIN-I < 0.017 ng/mL (0.000-0.060)
[2018-12-04 17:31] LABS: CKMB 1.1 U/L (0.0-3.6); CREATINE KINASE 45 UL (21-215); PRO BNP 5227 pg/mL (0-450); TROPONIN-I 0.016 ng/mL (0.000-0.060)
[2018-12-04 18:51] LABS: COLOR YELLOW (YELLOW)
[2018-12-04 18:52] LABS: APPEARANCE CLEAR (CLEAR); BILIRUBIN NEGATIVE (NEGATIVE); GLUCOSE NEGATIVE (NEGATIVE); KETONE NEGATIVE (NEGATIVE); NITRITE NEGATIVE (NEGATIVE); PROTEIN NEGATIVE (NEGATIVE); UROBILINOGEN NORMAL (NORMAL)
[2018-12-04 19:00] LABS: BACTERIA FEW /hpf (NEGATIVE); EPITHELIAL CELLS 0-5 /hpf (0-5); RED CELLS - URINE 0-5 /hpf (0-5); WHITE CELLS - URINE 0-5 /hpf (NEGATIVE)
--- NOTE | 2018-12-04 21:15 | NUR ---
PT ARRIVED ON UNIT VIA WHEELCHAIR ESCORTED BY ER NURSE. ASSISTED PT TO USE RESTROOM AND IN PUTTING ON GOWN. POSITIONED IN BED FOR COMFORT.
[2018-12-04] MEDS ORDERED: PROTONIX40 MG PO (21:25)
--- NOTE | 2018-12-04 21:25 | NUR ---
MED REC COMPLETED. PAGED CARLITO BUCK APN TO ADVISE OF PT'S ARRIVAL.
[2018-12-04] MEDS ORDERED: AUGMENTIN 875-11 TAB PO (21:26)
--- NOTE | 2018-12-04 21:30 | NUR ---
TELEMETRY PLACED ON PT PER ORDER. READING CONTROLLED A-FIB W/ PACEMAKER AT THIS ASSESSMENT.
--- NOTE | 2018-12-04 22:04 | NUR ---
HS MEDICATIONS GIVEN. WILL CONTINUE TO MONITOR FOR NEEDS.
--- NOTE | 2018-12-04 22:45 | NUR ---
SOAKED AND BRUSHED PT'S DENTURES. GAVE MOUTH MOISTURIZER.
[2018-12-04 22:51] VITALS: BP 143/73; BMI 33.2
--- NOTE | 2018-12-04 23:00 | NUR ---
GAVE PRUNE JUICE MIXED WITH [place] SODA, AND HEATED PER PT REQUEST FOR BOWELS.
--- NOTE | 2018-12-04 23:09 | NUR ---
ADMISSION AND HISTORY COMPLETE.
[2018-12-05] VITALS: BP 135/71
[2018-12-05 06:44] LABS: ALBUMIN 3.1 g/dL (3.4-5.0); BILIRUBIN - TOTAL 0.38 mg/dL (0.2-1.3); CALCIUM 8.8 mg/dL (8.5-10.1); CREATININE - SERUM 0.8 mg/dL (0.6-1.3); MAGNESIUM - SERUM 1.8 mg/dL (1.8-2.4); PHOSPHOROUS 3.9 mg/dL (2.5-4.9); PROTEIN - SERUM 6.6 g/dL (6.4-8.2)
[2018-12-05 06:46] LABS: APTT 41.4 SECONDS (22.8-39.4)
--- NOTE | 2018-12-05 09:46 | NUR ---
ALERT AND ORIENTED X3 ADN UP WITH SBA TO BATHROOM WITH STEADY GAIT USING FURNITURE FOR STABILITY. TELEMETRY INTACT WITH NO S/S OF CHEST PAIN OR ABNORMAL BLEEDING. ENCOURAGED TO USE CALL LIGHT FOR ASSIST.DENIES ANY PAIN OR DISCOMFORT AT THIS TIME.
[2018-12-05 09:47] VITALS: BP 175/82
--- NOTE | 2018-12-05 10:49 | MORECARE ---
CASE MANAGEMENT DISCHARGE SUMMARY PATIENT: FEDE HANCOCK FARRUKH UNIT: [id number] ADM DATE: 12/04/18 AGE: 88 : 32 SEX: F ROOM/BED: D.2226 AUTHOR: NYDIA DENG PHYSICIAN: REFERRING PHYSICIAN: HARRY YOU MD DATE OF SERVICE: 12/05/18 Discharge Plan Patient Name: FEDE HANCOCK [facility] [facility] 1930 Planned Disposition: Assisted Living Anticipated Discharge Date: 12/07/18 Discharge Date: Expected LOS: 3 Initial Reviewer: [email or web address] Initial Review Date: 12/04/2018 Generated: 12/05/18 11:49 am DCPIA - Discharge Planning Initial Assessment Updated by [email or web address]: Susie Lynn on 12/05/18 10:49 am * Is the patient Alert and Oriented? Yes * How many steps to enter\exit or inside your home? none * PCP Dr. Sharma * [facility]acy [facility] * Preadmission Environment Assisted Living * Facility Name [facility] * ADLs Independent * Equipment Oxygen Rolling Walker Tub Bench * Other Equipment wears O2 prn. * List name and contact numbers for known caregivers / representatives who currently or will assist patient after discharge: Alba Reynolds alvaro - [phone] * Verbal permission to speak to the caregivers and representatives has been obtained from the patient. Yes * Community resources currently utilized [facility] * Please name any agencies selected above. [facility] - DX r/t her heart. * Additional services required to return to the preadmission environment? No * Can the patient safely return to the preadmission environment? Yes * Has this patient been hospitalized within the prior 30 days at any hospital? Yes Patient Name: FEDE HANCOCK Page [id number] at 1049 All edits/amendments must be made on the electronic document DICTATION DATE: 12/05/18 1049 RIDES SUPERVISOR: GURINDER 12/05/18 1049 RPT#: [id number] DC DATE: STATUS: ADM IN [facility] [address] [place] [address] END OF REPORT
--- NOTE | 2018-12-05 10:57 | MORECARE ---
CASE MANAGEMENT DISCHARGE SUMMARY PATIENT: FEDE HANCOCK FARRUKH UNIT: [id number] ADM DATE: 12/04/18 AGE: 88 : 32 SEX: F ROOM/BED: D.2226 AUTHOR: SOWMYA,DOC PHYSICIAN: REFERRING PHYSICIAN: HARRY YOU MD DATE OF SERVICE: 12/05/18 Discharge Plan Patient Name: FEDE HANCOCK Facility: [facility]:[place] : 1930 Planned Disposition: Assisted Living Anticipated Discharge Date: 12/07/18 Discharge Date: Expected LOS: 3 Initial Reviewer: [email or web address] Initial Review Date: 12/04/2018 Generated: 12/05/18 11:56 am DCP- Discharge Planning Updated by [email or web address]: Susie Lynn on 12/05/18 9:[address] DC PLAN: Return to [facility]. ANTICIPATED DC NEEDS: Resumption of [facility]. CM met with patient to complete initial dc planning assessment. CM educated patient on the CM role and verbal consent given by patient to complete assessment. CM verified patient's address, phone number, and emergency contact phone numbers. Patient lives at [facility] and reports she is independent in her care at the [facility]. Patient currently has [facility] and wishes to resume at discharge. HAL form signed by patient for resumption of [facility]. Signed form placed in chart and signed form given to patient. At discharge patient plans to return [facility] w/ resumption of [facility] and feels this is a safe discharge. Patient reports her hospice diagnosis is r/t her hear. Patient denied further known discharge needs at this time. CM will continue to follow and will assist as needed with dc plans/needs. Susie Lynn RN, [facility] DCPIA - Discharge Planning Initial Assessment Updated by [email or web address]: Susie Lynn on 12/05/18 10:49 am * Is the patient Alert and Oriented? Yes * How many steps to enter\exit or inside your home? none * PCP Dr. Sharma * Pharmacy [facility] * Preadmission Environment Assisted Living * Facility Name [facility] * ADLs Independent * Equipment Oxygen Rolling Walker Tub Bench * Other Equipment wears O2 prn. * List name and contact numbers for known caregivers / representatives who currently or will assist patient after discharge: Alba Reynolds - alvaro - [phone] * Verbal permission to speak to the caregivers and representatives has been obtained from the patient. Yes * Community resources currently utilized [facility] * Please name any agencies selected above. [facility] - DX r/t her heart. * Additional services required to return to the preadmission environment? No * Can the patient safely return to the preadmission environment? Yes * Has this patient been hospitalized within the prior 30 days at any hospital? Yes Last DP export: 12/05/18 9:49 a Patient Name: FEDE HANCOCK Page 92474 at 1057 All edits/amendments must be made on the electronic document DICTATION DATE: 12/05/181055 DATA CAPTURE CLERK: GURINDER 12/05/18 1056 RPT#: [id number] DC DATE: STATUS: ADM IN [facility] [address] [place] [address] END OF REPORT
[2018-12-05 13:21] VITALS: Ht 152.4 cm; Wt 77.1 kg
[2018-12-05 13:39] VITALS: BP 133/61
--- NOTE | 2018-12-05 16:53 | MORECARE ---
CASE MANAGEMENT DISCHARGE SUMMARY PATIENT: FEDE HANCOCK FARRUKH UNIT: [id number] ADM DATE: 12/04/18 AGE: 88 : 32 SEX: F ROOM/BED: D.2226 AUTHOR: SOWMYADOC PHYSICIAN: REFERRING PHYSICIAN: HARRY YOU MD DATE OF SERVICE: 12/05/18 Discharge Plan Patient Name: FEDE HANCOCK Facility: [facility]:[place] : 1930 Planned Disposition: Assisted Living Anticipated Discharge Date: 12/07/18 Discharge Date: Expected LOS: 3 Initial Reviewer: [email or web address] Initial Review Date: 12/04/2018 Generated: 12/05/18 5:53 pm Comments DCP- Discharge Planning Updated by [email or web address]: Sofi Lin on 12/05/18 3:[address] 1600 CM RECEIVED DISCHARGE ORDER THIS LATE PM. 1630 TC [facility] AT [phone]. TO ADVISE OF DISCHARGE BACK TO [facility] AT [facility]. [facility]. AWAITING CB. SHE WAS ON SERVICE PRIOR TO ADMISSION. 1641 TC TO [facility] AT [phone]. CM SPOKE W/ AMINTA, WEEKEND HOUSE MONITOR. ADVISED OF DISCHARGE BACK TO [facility]. THE PATIENT IS PLANNING TRANSPORTATION VIA TAXI. DCP- Discharge Planning Updated by [email or web address]: Susie Lynn on 12/05/18 9:[address] DC PLAN: Return to [facility]. ANTICIPATED DC NEEDS: Resumption of [facility]. CM met with patient to complete initial dc planning assessment. CM educated patient on the CM role and verbal consent given by patient to complete assessment. CM verified patient's address, phone number, and emergency contact phone numbers. Patient lives at [facility] and reports she is independent in her care at the [facility]. Patient currently has [facility] and wishes to resume at discharge. HAL form signed by patient for resumption of [facility]. Signed form placed in chart and signed form given to patient. At discharge patient plans to return [facility] w/ resumption of [facility] and feels this is a safe discharge. Patient reports her hospice diagnosis is r/t her hear. Patient denied further known discharge needs at this time. CM will continue to follow and will assist as needed with dc plans/needs. Susie Lynn RN, [facility] DCPIA - Discharge Planning Initial Assessment Updated by [email or web address]: Susie Lynn on 12/05/18 10:49 am * Is the patient Alert and Oriented? Yes * How many steps to enter\exit or inside your home? none * PCP Dr. Sharma * Pharmacy [facility] * Preadmission Environment Assisted Living * Facility Name [facility] * ADLs Independent * Equipment Oxygen Rolling Walker Tub Bench * Other Equipment wears O2 prn. * List name and contact numbers for known caregivers / representatives who currently or will assist patient after discharge: Alba Reynolds - alvaro - [phone] * Verbal permission to speak to the caregivers and representatives has been obtained from the patient. Yes * Community resources currently utilized [facility] * Please name any agencies selected above. [facility] - DX r/t her heart. * Additional services required to return to the preadmission environment? No * Can the patient safely return to the preadmission environment? Yes * Has this patient been hospitalized within the prior 30 days at any hospital? Yes Last DP export: 12/05/18 9:57 a Patient Name: FEDE HANCOCK Page [id number] at 1653 All edits/amendments must be made on the electronic document DICTATION DATE: 12/05/181651 VOCATIONAL REHAB CONSULTANT: GURINDER 12/05/181651 RPT#: [id number] DC DATE: STATUS: ADM IN [facility] [address] [place] [address] END OF REPORT
[2018-12-05 17:00] VITALS: BP 175/87
--- NOTE | 2018-12-05 17:26 | MORECARE ---
CASE MANAGEMENT DISCHARGE SUMMARY PATIENT: FEDE HANCOCK FARRUKH UNIT: [id number] ADM DATE: 12/04/18 AGE: 88 : 32 SEX: F ROOM/BED: D.2226 AUTHOR: SOWMYA,DOC PHYSICIAN: REFERRING PHYSICIAN: HARRY YOU MD DATE OF SERVICE: 12/05/18 Discharge Plan Patient Name: FEDE HANCOCK Facility: [facility]:[place] : 1930 Planned Disposition: Assisted Living Anticipated Discharge Date: 12/07/18 Discharge Date: Expected LOS: 3 Initial Reviewer: [email or web address] Initial Review Date: 12/04/2018 Generated: 12/05/18 6:26 pm Comments DCP- Discharge Planning Updated by [email or web address]: Sofi Lin on 12/05/18 4:[address] LATE ENTRY 1705 RECEIVED CALL BACK FROM [facility]. CM SPOKE Raza/ [facility]. DISCUSSED DISCHARGE REFERRAL. CM FAXED DISCHARGE SUMMARY, LABS, VITAL SIGNS AND DISCHARGE MED LIST TO [phone]. [facility]. DCP- Discharge Planning Updated by [email or web address]: Sofi Lin on 12/05/18 3:[address] 1600 CM RECEIVED DISCHARGE ORDER THIS LATE PM. 1630 TC [facility] AT [phone]. TO ADVISE OF DISCHARGE BACK TO [facility]DEP[facility]ENT LIVING AT [facility]. [facility]. AWAITING CB. SHE WAS ON SERVICE PRIOR TO ADMISSION. 1641 TC TO [facility] AT [phone]. CM SPOKE Raza/ LOWELL LEMOS HOUSE MONITOR. ADVISED OF DISCHARGE BACK TO [facility]. THE PATIENT IS PLANNING TRANSPORTATION VIA TAXI. DCP- Discharge Planning Updated by [email or web address]: Susie Lynn on 12/05/18 9:[address] DC PLAN: Return to [facility]. ANTICIPATED DC NEEDS: Resumption of [facility]. CM met with patient to complete initial dc planning assessment. CM educated patient on the CM role and verbal consent given by patient to complete assessment. CM verified patient's address, phone number, and emergency contact phone numbers. Patient lives at [facility] and reports she is independent in her care at the [facility]. Patient currently has [facility] and wishes to resume at discharge. HAL form signed by patient for resumption of [facility]. Signed form placed in chart and signed form given to patient. At discharge patient plans to return [facility]/ resumption of [facility] and feels this is a safe discharge. Patient reports her hospice diagnosis is r/t her hear. Patient denied further known discharge needs at this time. CM will continue to follow and will assist as needed with dc plans/needs. Susie Lynn RN, [facility] DCPIA - Discharge Planning Initial Assessment Updated by [email or web address]: Susie Lynn on 12/05/18 10:49 am * Is the patient Alert and Oriented? Yes * How many steps to enter\exit or inside your home? none * PCP Dr. Sharma * Pharmacy [facility] * Preadmission Environment Assisted Living * Facility Name [facility] - [facility] * ADLs Independent * Equipment Oxygen Rolling Walker Tub Bench * Other Equipment wears O2 prn. * List name and contact numbers for known caregivers / representatives who currently or will assist patient after discharge: Alba Reynolds - alvaro - [phone] * Verbal permission to speak to the caregivers and representatives has been obtained from the patient. Yes * Community resources currently utilized [facility] * Please name any agencies selected above. [facility] - DX r/t her heart. * Additional services required to return to the preadmission environment? No * Can the patient safely return to the preadmission environment? Yes * Has this patient been hospitalized within the prior 30 days at any hospital? Yes Last DP export: 12/05/18 3:53 p Patient Name: FEDE HANCOCK Page 20013 at 1726 All edits/amendments must be made on the electronic document DICTATION DATE: 12/05/181725 CLEANER AND PRESSER: GURINDER 12/05/181725 RPT#: [id number] DC DATE: STATUS: ADM IN [facility] [address] [place] [address] END OF REPORT
--- NOTE | 2018-12-05 17:40 | NUR ---
IV DISCONTINUED AND VERBALIZED UNDERSTANDING OF DISCHARGE INSTRUCTIONS. PT DISCHARGED VIA CAB SERVICE. STABLE AT TIME OF DEPARTURE.
--- NOTE | 2018-12-05 17:41 | MORECARE ---
CASE MANAGEMENT DISCHARGE SUMMARY PATIENT: FEDE HANCOCK FARRUKH UNIT: [id number] ADM DATE: 12/04/18 AGE: 88 : 32 SEX: F ROOM/BED: D.2226 AUTHOR: SOWMYA,DOC PHYSICIAN: REFERRING PHYSICIAN: HARRY YOU MD DATE OF SERVICE: 12/05/18 Discharge Plan Patient Name: FEDE HANCOCK Facility: [facility]:[place] : 1930 Planned Disposition: Assisted Living Anticipated Discharge Date: 12/07/18 Discharge Date: Expected LOS: 3 Initial Reviewer: [email or web address] Initial Review Date: 12/04/2018 Generated: 12/05/18 6:41 pm Comments DCP- Discharge Planning Updated by [email or web address]: Sofi Lin on 12/05/18 4:[address] CM ADVISED THE PATIENT THAT I HAD SPOKEN W/ [facility] [facility]. EXPLAINED I HAD ALSO FAXED HER DISCHARGE SUMMARY, MED LIST AND LABS TO [facility] TO [facility]. CM DISCUSSED DISCHARGE IMM. PATIENT HAD NO QUESTIONS OR CONCERNS. DISCHARGE IMM SERVED. SIGNATURES OBTAINED. SIGNED COPY TO THE PATIENT. SIGNED COPY TO THE PATIENT'S HARD COVER CHART. SHE HAD ALSO SPOKEN W/ [employer]. SHE WILL TAKING A TAXI TO HOME. DCP- Discharge Planning Updated by [email or web address]: Sofi Oglethorpe on 12/05/18 4:[address] LATE ENTRY 1705 RECEIVED CALL BACK FROM [facility]. CM SPOKE W/ LEONEL. DISCUSSED DISCHARGE REFERRAL. CM FAXED DISCHARGE SUMMARY, LABS, VITAL SIGNS AND DISCHARGE MED LIST TO [phone]. [facility] WILL NOTIFY THE PATIENT OF VISIT DATE. DCP- Discharge Planning Updated by [id number]: Sofi Oglethorpe on 12/05/18 3:[address] 1600 CM RECEIVED DISCHARGE ORDER THIS LATE PM. 1630 TC TO [facility] AT [phone]. TO ADVISE OF DISCHARGE BACK TO [facility]DEPENDENT LIVING AT [facility]. [facility]. AWAITING CB. SHE WAS ON SERVICE PRIOR TO ADMISSION. 1641 TC TO [facility] AT [phone]. CM SPOKE W/ AMINTA WEEKEND HOUSE MONITOR. ADVISED OF DISCHARGE BACK TO [facility]. THE PATIENT IS PLANNING TRANSPORTATION VIA TAXI. DCP- Discharge Planning Updated by [email or web address]: Susie Lynn on 12/05/18 9:[address] DC PLAN: Return to [facility]. ANTICIPATED DC NEEDS: Resumption of [facility]. CM met with patient to complete initial dc planning assessment. CM educated patient on the CM role and verbal consent given by patient to complete assessment. CM verified patient's address, phone number, and emergency contact phone numbers. Patient lives at [facility] and reports she is independent in her care at the [facility]. Patient currently has [facility] and wishes to resume at discharge. HAL form signed by patient for resumption of [facility]. Signed form placed in chart and signed form given to patient. At discharge patient plans to return [facility] w/ resumption of [facility] and feels this is a safe discharge. Patient reports her hospice diagnosis is r/t her hear. Patient denied further known discharge needs at this time. CM will continue to follow and will assist as needed with dc plans/needs. Susie Lynn RN, [facility] DCPIA - Discharge Planning Initial Assessment Updated by [email or web address]: Susie Lynn on 12/05/18 10:49 am * Is the patient Alert and Oriented? Yes * How many steps to enter\exit or inside your home? none * PCP Dr. Sharma * Pharmacy [facility] * Preadmission Environment Assisted Living * Facility Name [facility] * ADLs Independent * Equipment Oxygen Rolling Walker Tub Bench * Other Equipment wears O2 prn. * List name and contact numbers for known caregivers / representatives who currently or will assist patient after discharge: Alba Quinterokassie - [facility] - [phone] * Verbal permission to speak to the caregivers and representatives has been obtained from the patient. Yes * Community resources currently utilized [facility] * Please name any agencies selected above. [facility] - DX r/t her heart. * Additional services required to return to the preadmission environment? No * Can the patient safely return to the preadmission environment? Yes * Has this patient been hospitalized within the prior 30 days at any hospital? Yes Coverage Notice Reviewer: [id number] - Sofi Lin Notice Issued Date-Time: 12/05/2018 17:30 Notice Type: IM Discharge Notice Notice Delivered To: Patient Relationship to Patient: Self Associate Spa Director Name: Delivery Method: HAND - Hand Delivered Alexandra Days: Prior Verbal Notification: Recipient Understood Notice: Yes Recipient Signature: Yes Med Rec Note Co-signed by Attending: Coverage Notice Comment: DISCHARGE IMM EXPLAINED AND SERVE. SIGNATURES OBTAINED. COPY TO THE PATIENT. COPY TO THE HARD COVER CHART. Last DP export: 12/05/18 4:26 p Patient Name: FEDE HANCOCK Page 71050 at 1741 All edits/amendments must be made on the electronic document DICTATION DATE: 12/05/181739 PLANT ASSIGNER: GURINDER 12/05/181739 RPT#: [id number] DC DATE: STATUS: ADM IN [facility] [address] [place] [address] END OF REPORT
--- NOTE | 2018-12-07 09:44 | MORECARE ---
CASE MANAGEMENT DISCHARGE SUMMARY PATIENT: FEDE HANCOCK FARRUKH UNIT: [id number] ADM DATE: 12/04/18 AGE: 88 : 32 SEX: F ROOM/BED: D.2226 AUTHOR: SOWMYA,DOC PHYSICIAN: REFERRING PHYSICIAN: HARRY YOU MD DATE OF SERVICE: 12/07/18 Discharge Plan Patient Name: FEDE HANCOCK Facility: [facility]:[place] : 1930 Planned Disposition: Assisted Living Anticipated Discharge Date: 12/07/18 Discharge Date: 12/05/2018 Expected LOS: 3 Initial Reviewer: [email or web address] Initial Review Date: 12/04/2018 Generated: 12/07/18 10:44 am Comments DCP- Discharge Planning Updated by [id number]: Sofi Cherry on 12/05/18 4:[address] CM ADVISED THE PATIENT THAT I HAD SPOKEN W/ [employer] [facility]. EXPLAINED I HAD ALSO FAXED HER DISCHARGE SUMMARY, MED LIST AND LABS TO [facility] TO [facility]. CM DISCUSSED DISCHARGE IMM. PATIENT HAD NO QUESTIONS OR CONCERNS. DISCHARGE IMM SERVED. SIGNATURES OBTAINED. SIGNED COPY TO THE PATIENT. SIGNED COPY TO THE PATIENT'S HARD COVER CHART. SHE HAD ALSO SPOKEN W/ [employer]. SHE WILL TAKING A TAXI TO HOME. DCP- Discharge Planning Updated by [id number]: Sofi Cherry on 12/05/18 4:[address] LATE ENTRY 1705 RECEIVED CALL BACK FROM [facility]. CM SPOKE W/ [facility]ON[facility]. DISCUSSED DISCHARGE REFERRAL. CM FAXED DISCHARGE SUMMARY, LABS, VITAL SIGNS AND DISCHARGE MED LIST TO [phone]. [facility] WILL NOTIFY THE PATIENT OF VISIT DATE. DCP- Discharge Planning Updated by [email or web address]: Sofi Cherry on 12/05/18 3:[address] 1600 CM RECEIVED DISCHARGE ORDER THIS LATE PM. 1630 TC TO [facility] AT [phone]. TO ADVISE OF DISCHARGE BACK TO INDEPENDENT LIVING AT [facility]. [facility]. AWAITING CB. SHE WAS ON SERVICE PRIOR TO ADMISSION. 1641 TC TO [facility] AT [phone]. CM SPOKE W/ AMINTA, WEEKEND HOUSE MONITOR. ADVISED OF DISCHARGE BACK TO [facility]. THE PATIENT IS PLANNING TRANSPORTATION VIA TAXI. DCP- Discharge Planning Updated by [email or web address]: Susie Lynn on 12/05/18 9:[address] DC PLAN: Return to [facility]. ANTICIPATED DC NEEDS: Res[facility] of [facility]. CM met with patient to complete initial dc planning assessment. CM educated patient on the CM role and verbal consent given by patient to complete assessment. CM verified patient's address, phone number, and emergency contact phone numbers. Patient lives at [facility] and reports she is independent in her care at the [facility]. Patient currently has [facility] and wishes to resume at discharge. HAL form signed by patient for resumption of [facility]. Signed form placed in chart and signed form given to patient. At discharge patient plans to return [facility] w/ resumption of [facility] and feels this is a safe discharge. Patient reports her hospice diagnosis is r/t her hear. Patient denied further known discharge needs at this time. CM will continue to follow and will assist as needed with dc plans/needs. Susie Lynn RN, [facility] DCPIA - Discharge Planning Initial Assessment Updated by [email or web address]: Susie Lynn on 12/05/18 10:49 am * Is the patient Alert and Oriented? Yes * How many steps to enter\exit or inside your home? none * PCP Dr. Sharma * Pharmacy [facility] * Preadmission Environment Assisted Living * Facility Name [facility] * ADLs Independent * Equipment Oxygen Rolling Walker Tub Bench * Other Equipment wears O2 prn. * List name and contact numbers for known caregivers / representatives who currently or will assist patient after discharge: Alba Gail - [facility] - [phone] * Verbal permission to speak to the caregivers and representatives has been obtained from the patient. Yes * Community resources currently utilized [facility] * Please name any agencies selected above. [facility] - DX r/t her heart. * Additional services required to return to the preadmission environment? No * Can the patient safely return to the preadmission environment? Yes * Has this patient been hospitalized within the prior 30 days at any hospital? Yes Coverage Notice Reviewer: [id number] - Sofi Lin Notice Issued Date-Time: 12/05/2018 17:30 Notice Type: IM Discharge Notice Notice Delivered To: Patient Relationship to Patient: Self Pump House Technician Name: Delivery Method: HAND - Hand Delivered Alexandra Days: Prior Verbal Notification: Recipient Understood Notice: Yes Recipient Signature: Yes Med Rec Note Co-signed by Attending: Coverage Notice Comment: DISCHARGE IMM EXPLAINED AND SERVE. SIGNATURES OBTAINED. COPY TO THE PATIENT. COPY TO THE HARD COVER CHART. Last DP export: 12/05/18 4:41 p Patient Name: FEDE HANCOCK Page [id number] at 0944 All edits/amendments must be made on the electronic document DICTATION DATE: 12/07/18942 PARIMUTUEL TICKET CHECKER: GURINDER 12/07/1843 RPT#: [id number] DC DATE:12/05/18 STATUS: DIS IN [facility] [address] [place] [address] END OF REPORT
== END 2018-12-05 17:40 | disposition home health service (06) | DRG 392 ==
LOC: D.ER 13:43 → D.MS 18:38
PROVIDERS: Emergency Medicine; ADMIT Internal Medicine Nephrology; ATTEND Internal Medicine Nephrology
DX: K59.09 Other constipation (principal); I10 Essential (primary) hypertension; E78.5 Hyperlipidemia, unspecified; I25.10 Atherosclerotic heart disease of native coronary artery without angina pectoris; K21.9 Gastro-esophageal reflux disease without esophagitis; E03.9 Hypothyroidism, unspecified; F32.9 Major depressive disorder, single episode, unspecified; I08.3 Combined rheumatic disorders of mitral, aortic and tricuspid valves; Z95.0 Presence of cardiac pacemaker

== ENCOUNTER → 2018-12-10 17:06 | Outpatient (CLI) | payer MEDICARE, BC ==
[2018-12-05 13:21] VITALS: BMI 33.2
[~2018-12-10 17:06] MED LIST changes: +AUGMENTIN 875-11 TAB PO; +PROTONIX40 MG PO
== END | disposition home or self-care (01) ==
LOC: D.LABREF 17:06
PROVIDERS: ATTEND Urology
DX: R31.9 Hematuria, unspecified (principal)